=== PATIENT | female | born 1945 | race Caucasian/White ===

== ENCOUNTER → 2016-11-09 | Outpatient (REF) | payer MEDICARE, BC ==
[~2016-11-09] MED LIST: /ADVA50050 INH; /TIOT18INH; /TIOT18INH INH; /WARF25TA; AMBI5TAB; ASPI1TAB PO; ASPI81TA63; CALC600T10; DEXI60CA PO; FISH100035 PO; HYDR12.55 PO; KEFL500C; MAGN250T11 PO; PERC5TAB8; POTASSIUM; PRIN10TA PO; PROAAER IN; THERGRAN; VITA100037 PO; VITA250L PO; VITA250T; VITAMIN D; VITAMIN E; clindamycin
[2016-11-09 13:19] LABS: SQUAMOUS EPITHELIAL CELL URINE MOD AMOUNT /hpf (SMALL AMT)
[2016-11-09 13:20] LABS: BACTERIA, URINE NONE SEEN; HYALINE CAST, URINE NONE SEEN /lpf (0-1); MICROSCOPIC EXAM PERFORMED; TRANSITIONAL EPI CELLS, URINE MOD AMOUNT /hpf
== END ==
LOC: M LAB REF 12:51
PROVIDERS: ATTEND Internal Medicine
DX: R31.9 Hematuria, unspecified (principal)

== ENCOUNTER → 2016-11-28 | Outpatient (REF) | payer MEDICARE, BC | LOC: M SFHCLERA 08:51 | PROVIDERS: ATTEND Dermatology | DX: L85.8 Other specified epidermal thickening (principal) | CPT/HCPCS: 11100; 11101; 17000; 17003; 88305; G0463 ==

== ENCOUNTER 2017-05-20 11:45 | Day surgery (SDC) | payer MEDICARE, BC ==
[2017-05-20] MEDS: NS 1,000 ML IV (12:07)
[2017-05-20] MEDS ORDERED: PROPOFOL 200 MG/20 ML VIAL As Ordered ×2 (12:26)
[2017-05-20] MEDS ORDERED: LIDOCAINE 2% INJ 100 MG/5 ML SDV (FOR ANES.) As Ordered (12:31)
[2017-05-20] MEDS ORDERED: PHENYLephrine HCL 500 MCG/5 ML (100MCG/ML) SYRINGE (J2370) As Ordered (12:55)
[2017-05-20] MEDS ORDERED: NS 1,000 ML IV (13:15)
== END 2017-05-20 13:38 | disposition home or self-care (01) ==
LOC: M OPP 11:45
DX: Z12.11 Encounter for screening for malignant neoplasm of colon (principal); K64.0 First degree hemorrhoids; D12.6 Benign neoplasm of colon, unspecified; K57.30 Diverticulosis of large intestine without perforation or abscess without bleeding; Z86.010 Personal history of colon polyps; I10 Essential (primary) hypertension; K21.9 Gastro-esophageal reflux disease without esophagitis; E78.5 Hyperlipidemia, unspecified; J44.9 Chronic obstructive pulmonary disease, unspecified; Z79.82 Long term (current) use of aspirin; Z79.899 Other long term (current) drug therapy; Z91.49 Other personal history of psychological trauma, not elsewhere classified; Z91.048 Other nonmedicinal substance allergy status; Z96.643 Presence of artificial hip joint, bilateral
CPT/HCPCS: 45385

== ENCOUNTER 2017-10-03 15:19 | Inpatient (IN) | payer MEDICARE, BC ==
[2017-10-03 16:17] LABS: BASO % 0.3 % (0.0-1.0); EOS % 0.1 % (0.0-3.0); HEMATOCRIT 39.4 % (36.0-47.0); HEMOGLOBIN 12.9 g/dl (12.0-15.5); IMMATURE GRANULOCYTE % 0.4 % (0-3.0); LYMPH # 1.8 10^3/uL (1.5-4.5); LYMPH % 11.1 % (24.0-44.0); MEAN CORPUSCULAR HEMOGLOBIN 31.9 pg (27.0-33.0); MEAN CORPUSCULAR HGB CONC 32.7 g/dl (32.0-36.5); MEAN CORPUSCULAR VOLUME 97.3 fl (80.0-96.0); MONO # 0.8 10^3/uL (0.0-0.8); MONO % 4.9 % (0.0-5.0); NEUTROPHILS # 13.3 10^3/uL (1.8-7.7); NEUTROPHILS % 83.2 % (36.0-66.0); PLATELET COUNT, AUTOMATED 224 10^3/uL (150-450); RED BLOOD COUNT 4.05 10^6/uL (4.00-5.40); RED CELL DISTRIBUTION WIDTH 13.9 % (11.5-14.5)
[2017-10-03 16:21] LABS: ABG BASE EXCESS 2.6 (-2.0-2.0); ABG HCO3 28.4 MEQ/L (22.0-26.0); ABG O2 SATURATION 93.1 % (95.0-99.0); ABG PARTIAL PRESSURE CO2 48.5 mmHg (35.0-45.0); ABG PARTIAL PRESSURE O2 67.2 mmHg (75.0-100.0); ABG STANDARD HCO3 26.6 MEQ/L (22.0-26.0); ABG TOTAL CO2 29.9 MEQ/L (23.0-31.0); ABG pH (ARTERIAL) 7.385 UNITS (7.350-7.450)
[2017-10-03] MEDS: IPRATROPIUM 0.5MG/ALBUTEROL 2.5MG INH SOL UD 3ML (DUONEB)(J7620) NEB ×3 (16:25→17:34)
[2017-10-03 16:52] LABS: ALBUMIN 3.4 GM/DL (3.2-5.2); ALBUMIN/GLOBULIN RATIO 0.94 (1.00-1.93); ALKALINE PHOSPHATASE 125 U/L (45-117); ALT/SGPT 28 U/L (12-78); ANION GAP 9 MEQ/L (8-16); AST/SGOT 24 U/L (7-37); BILIRUBIN,DIRECT 0.5 MG/DL (0.0-0.2); BILIRUBIN,TOTAL 1.2 MG/DL (0.2-1.0); BLOOD UREA NITROGEN 16 MG/DL (7-18); CALCIUM LEVEL 8.4 MG/DL (8.8-10.2); CARBON DIOXIDE LEVEL 29 MEQ/L (21-32); CHLORIDE LEVEL 101 MEQ/L (98-107); CPK CREATINE PHOSPHOKINASE 41 U/L (26-192); CREATININE FOR GFR 0.66 MG/DL (0.55-1.30); GLOMERULAR FILTRATION RATE > 60.0 (>39); GLUCOSE, FASTING 75 MG/DL (70-100); SODIUM LEVEL 139 MEQ/L (136-145); TROPONIN I < 0.02 NG/ML (< 0.10)
[2017-10-03 16:52] LABS: LACTIC ACID SEPSIS PROTOCOL 1.4 MMOL/L (0.4-2.0)
[2017-10-03 16:53] LABS: CK-MB VALUE MASS 1.7 NG/ML (<3.6); MB/CK RELATIVE INDEX 4.14 (< OR =4); NT-PRO BNP 232 PG/ML (<125)
[2017-10-03] MEDS: ACETAMINOPHEN TAB 650MG DOSE (2X325MG) PO (16:57)
[2017-10-03] MEDS: methylPREDNISolone INJ 125 MG/2 ML VIAL (J2930) IV (16:58)
[2017-10-03] MEDS ORDERED: ISOVUE-370 76% 100ML VIAL (Q9967) As Ordered (17:17)
[2017-10-03] MEDS: NS 500 ML IV (17:30)
[2017-10-03] MEDS: cefTRIAXone SOD 1 GM in D5W MINI-BAG PLUS 50 ML IV (19:40)
[2017-10-03] MEDS ORDERED: ACETAMINOPHEN TAB 650MG DOSE (2X325MG) PO (20:00)
[2017-10-03] MEDS ORDERED: ALBUTEROL SULFATE 2.5 MG/0.5 ML INH NEB SOLN INH (20:00)
[2017-10-03] MEDS ORDERED: ONDANSETRON 4MG/2ML VIAL (J2405) IV (20:00)
[2017-10-03] MEDS: AZITHROMYCIN INJ 500 MG, VIAL MATE ADAPTER 1 EACH in D5W 250 ML IV (20:12)
[2017-10-03] MEDS: FLUTICASONE PROP 0.05% NASAL SPRAY 16 GM (FLONASE) (21:00)
[2017-10-03] MEDS: ATORVASTATIN 20 MG TAB PO (21:57)
[2017-10-03] MEDS: NS 1,000 ML IV (21:58)
[2017-10-03] MEDS: MIRTAZAPINE 15 MG TAB PO (21:58)
[2017-10-03] MEDS: ENOXAPARIN 40 MG/0.4 ML SYRINGE (J1650) SC (21:58)
[2017-10-03] MEDS: ADVAIR HFA 230/21MCG INHALER INH (23:03)
[2017-10-03] MEDS: ALBUTEROL SULFATE 2.5 MG/0.5 ML INH NEB SOLN INH (23:03)
[2017-10-04] MEDS: methylPREDNISolone INJ 125 MG/2 ML VIAL (J2930) IV (01:26)
[2017-10-04 06:29] LABS: HEMATOCRIT 34.8 % (36.0-47.0); HEMOGLOBIN 11.4 g/dl (12.0-15.5); MEAN CORPUSCULAR HEMOGLOBIN 31.8 pg (27.0-33.0); MEAN CORPUSCULAR HGB CONC 32.8 g/dl (32.0-36.5); MEAN CORPUSCULAR VOLUME 96.9 fl (80.0-96.0); PLATELET COUNT, AUTOMATED 180 10^3/uL (150-450); RED BLOOD COUNT 3.59 10^6/uL (4.00-5.40); RED CELL DISTRIBUTION WIDTH 13.6 % (11.5-14.5); WHITE BLOOD COUNT 12.4 10^3/uL (4.0-10.0)
[2017-10-04 06:44] LABS: ANION GAP 5 MEQ/L (8-16); BLOOD UREA NITROGEN 14 MG/DL (7-18); CALCIUM LEVEL 8.4 MG/DL (8.8-10.2); CARBON DIOXIDE LEVEL 30 MEQ/L (21-32); CHLORIDE LEVEL 105 MEQ/L (98-107); CREATININE FOR GFR 0.57 MG/DL (0.55-1.30); GLOMERULAR FILTRATION RATE > 60.0 (>39); GLUCOSE, FASTING 175 MG/DL (70-100); SODIUM LEVEL 140 MEQ/L (136-145)
[2017-10-04] MEDS: ALBUTEROL SULFATE 2.5 MG/0.5 ML INH NEB SOLN INH ×4 (08:00→19:57)
[2017-10-04] MEDS: TIOTROPIUM INHALER/CAPSULE (SPIRIVA) INH (08:36)
[2017-10-04] MEDS: ADVAIR HFA 230/21MCG INHALER INH ×2 (08:37→19:57)
[2017-10-04] MEDS: MULTIVITAMINS/MINERALS THERAP 1 TAB PO (09:03)
[2017-10-04] MEDS: OMEGA-3 1050MG CAPSULE PO (09:03)
[2017-10-04] MEDS: PANTOPRAZOLE 40MG TAB (PROTONIX) PO (09:03)
[2017-10-04] MEDS: LACTOBACILLUS ACIDOPHILUS CAP (BACID) PO (09:03)
[2017-10-04] MEDS: ASPIRIN 81 MG ENTERIC TAB PO (09:03)
[2017-10-04 09:05] LABS: ALBUMIN 2.7 GM/DL (3.2-5.2); ALBUMIN/GLOBULIN RATIO 0.68 (1.00-1.93); ALKALINE PHOSPHATASE 106 U/L (45-117); ALT/SGPT 23 U/L (12-78); AST/SGOT 20 U/L (7-37); BILIRUBIN,DIRECT 0.1 MG/DL (0.0-0.2); BILIRUBIN,TOTAL 0.3 MG/DL (0.2-1.0); TOTAL PROTEIN 6.7 GM/DL (6.4-8.2)
[2017-10-04] MEDS: methylPREDNISolone INJ 40 MG/1 ML VIAL (J2920) IV ×2 (09:06→17:24)
[2017-10-04] MEDS: AZITHROMYCIN 250 MG TAB PO (20:08)
[2017-10-04] MEDS: MIRTAZAPINE 15 MG TAB PO (20:08)
[2017-10-04] MEDS: ATORVASTATIN 20 MG TAB PO (20:08)
[2017-10-04] MEDS: FLUTICASONE PROP 0.05% NASAL SPRAY 16 GM (FLONASE) (20:09)
[2017-10-04] MEDS: ENOXAPARIN 40 MG/0.4 ML SYRINGE (J1650) SC (20:09)
[2017-10-04] MEDS: cefTRIAXone SOD 2 GM in D5W MINI-BAG PLUS 50 ML IV (20:09)
[2017-10-05] MEDS: methylPREDNISolone INJ 40 MG/1 ML VIAL (J2920) IV (01:31)
[2017-10-05 06:12] LABS: HEMATOCRIT 33.1 % (36.0-47.0); HEMOGLOBIN 10.8 g/dl (12.0-15.5); MEAN CORPUSCULAR HGB CONC 32.6 g/dl (32.0-36.5); MEAN CORPUSCULAR VOLUME 98.2 fl (80.0-96.0); PLATELET COUNT, AUTOMATED 198 10^3/uL (150-450); RED BLOOD COUNT 3.37 10^6/uL (4.00-5.40); WHITE BLOOD COUNT 11.8 10^3/uL (4.0-10.0)
[2017-10-05 06:31] LABS: ALBUMIN 2.7 GM/DL (3.2-5.2); ALBUMIN/GLOBULIN RATIO 0.68 (1.00-1.93); ALKALINE PHOSPHATASE 113 U/L (45-117); ALT/SGPT 24 U/L (12-78); ANION GAP 3 MEQ/L (8-16); AST/SGOT 20 U/L (7-37); BILIRUBIN,DIRECT < 0.1 MG/DL (0.0-0.2); BILIRUBIN,TOTAL 0.1 MG/DL (0.2-1.0); BLOOD UREA NITROGEN 24 MG/DL (7-18); CALCIUM LEVEL 8.5 MG/DL (8.8-10.2); CARBON DIOXIDE LEVEL 32 MEQ/L (21-32); CHLORIDE LEVEL 109 MEQ/L (98-107); GLOMERULAR FILTRATION RATE > 60.0 (>39); GLUCOSE, FASTING 137 MG/DL (70-100); POTASSIUM SERUM 4.8 MEQ/L (3.5-5.1); SODIUM LEVEL 144 MEQ/L (136-145); TOTAL PROTEIN 6.7 GM/DL (6.4-8.2)
[2017-10-05] MEDS: ALBUTEROL SULFATE 2.5 MG/0.5 ML INH NEB SOLN INH ×4 (08:00→20:00)
[2017-10-05] MEDS: ADVAIR HFA 230/21MCG INHALER INH ×2 (09:49→20:17)
[2017-10-05] MEDS: TIOTROPIUM INHALER/CAPSULE (SPIRIVA) INH (09:49)
[2017-10-05] MEDS: OMEGA-3 1050MG CAPSULE PO (11:17)
[2017-10-05] MEDS: PANTOPRAZOLE 40MG TAB (PROTONIX) PO (11:18)
[2017-10-05] MEDS: ASPIRIN 81 MG ENTERIC TAB PO (11:18)
[2017-10-05] MEDS: MULTIVITAMINS/MINERALS THERAP 1 TAB PO (11:18)
[2017-10-05] MEDS: LACTOBACILLUS ACIDOPHILUS CAP (BACID) PO (11:18)
[2017-10-05] MEDS ORDERED: methylPREDNISolone INJ 40 MG/1 ML VIAL (J2920) IV (13:00)
[2017-10-05] MEDS: methylPREDNISolone INJ 125 MG/2 ML VIAL (J2930) IV (14:07)
[2017-10-05] MEDS: BENZONATATE 100 MG CAP PO (14:09)
[2017-10-05] MEDS: MIRTAZAPINE 15 MG TAB PO (20:21)
[2017-10-05] MEDS: AZITHROMYCIN 250 MG TAB PO (20:21)
[2017-10-05] MEDS: cefTRIAXone SOD 2 GM in D5W MINI-BAG PLUS 50 ML IV (20:21)
[2017-10-05] MEDS: ATORVASTATIN 20 MG TAB PO (20:21)
[2017-10-05] MEDS: FLUTICASONE PROP 0.05% NASAL SPRAY 16 GM (FLONASE) (20:22)
[2017-10-05] MEDS: ENOXAPARIN 40 MG/0.4 ML SYRINGE (J1650) SC (20:22)
[2017-10-06] MEDS: methylPREDNISolone INJ 125 MG/2 ML VIAL (J2930) IV (00:50)
[2017-10-06 06:42] LABS: HEMATOCRIT 34.4 % (36.0-47.0); HEMOGLOBIN 11.4 g/dl (12.0-15.5); MEAN CORPUSCULAR HEMOGLOBIN 32.6 pg (27.0-33.0); MEAN CORPUSCULAR HGB CONC 33.1 g/dl (32.0-36.5); MEAN CORPUSCULAR VOLUME 98.3 fl (80.0-96.0); PLATELET COUNT, AUTOMATED 242 10^3/uL (150-450); RED CELL DISTRIBUTION WIDTH 13.9 % (11.5-14.5)
[2017-10-06 07:07] LABS: ALKALINE PHOSPHATASE 109 U/L (45-117); ALT/SGPT 30 U/L (12-78); ANION GAP 5 MEQ/L (8-16); AST/SGOT 23 U/L (7-37); BLOOD UREA NITROGEN 24 MG/DL (7-18); CALCIUM LEVEL 8.4 MG/DL (8.8-10.2); CARBON DIOXIDE LEVEL 32 MEQ/L (21-32); CHLORIDE LEVEL 108 MEQ/L (98-107); CREATININE FOR GFR 0.73 MG/DL (0.55-1.30); GLOMERULAR FILTRATION RATE > 60.0 (>39); GLUCOSE, FASTING 119 MG/DL (70-100); POTASSIUM SERUM 3.8 MEQ/L (3.5-5.1); SODIUM LEVEL 145 MEQ/L (136-145)
[2017-10-06 07:08] LABS: ALBUMIN 2.8 GM/DL (3.2-5.2); ALBUMIN/GLOBULIN RATIO 0.72 (1.00-1.93); BILIRUBIN,DIRECT < 0.1 MG/DL (0.0-0.2); BILIRUBIN,TOTAL 0.2 MG/DL (0.2-1.0); C REACTIVE PROTEIN QUANTITATIV 5.47 MG/DL (0.00-0.30); TOTAL PROTEIN 6.7 GM/DL (6.4-8.2)
[2017-10-06] MEDS: ALBUTEROL SULFATE 2.5 MG/0.5 ML INH NEB SOLN INH ×4 (08:00→20:00)
[2017-10-06] MEDS: TIOTROPIUM INHALER/CAPSULE (SPIRIVA) INH (08:28)
[2017-10-06] MEDS: ADVAIR HFA 230/21MCG INHALER INH ×2 (08:28→20:37)
[2017-10-06] MEDS: BENZONATATE 100 MG CAP PO ×2 (10:58→19:04)
[2017-10-06] MEDS: LACTOBACILLUS ACIDOPHILUS CAP (BACID) PO (10:58)
[2017-10-06] MEDS: guaiFENesin DM LIQ 10ML UD PO ×2 (10:58→20:38)
[2017-10-06] MEDS: guaiFENesin ER 600 MG TAB PO ×2 (10:59→20:18)
[2017-10-06] MEDS: OMEGA-3 1050MG CAPSULE PO (10:59)
[2017-10-06] MEDS: PANTOPRAZOLE 40MG TAB (PROTONIX) PO (10:59)
[2017-10-06] MEDS: MULTIVITAMINS/MINERALS THERAP 1 TAB PO (10:59)
[2017-10-06] MEDS: ASPIRIN 81 MG ENTERIC TAB PO (10:59)
[2017-10-06] MEDS: methylPREDNISolone INJ 40 MG/1 ML VIAL (J2920) IV (14:20)
[2017-10-06] MEDS: ENOXAPARIN 40 MG/0.4 ML SYRINGE (J1650) SC (20:17)
[2017-10-06] MEDS: cefTRIAXone SOD 2 GM in D5W MINI-BAG PLUS 50 ML IV (20:18)
[2017-10-06] MEDS: MIRTAZAPINE 15 MG TAB PO (20:18)
[2017-10-06] MEDS: ATORVASTATIN 20 MG TAB PO (20:18)
[2017-10-06] MEDS: AZITHROMYCIN 250 MG TAB PO (20:18)
[2017-10-06] MEDS: FLUTICASONE PROP 0.05% NASAL SPRAY 16 GM (FLONASE) (20:19)
[2017-10-07] MEDS: methylPREDNISolone INJ 40 MG/1 ML VIAL (J2920) IV (01:15)
[2017-10-07 06:21] LABS: HEMATOCRIT 33.9 % (36.0-47.0); HEMOGLOBIN 11.1 g/dl (12.0-15.5); MEAN CORPUSCULAR HEMOGLOBIN 32.2 pg (27.0-33.0); MEAN CORPUSCULAR HGB CONC 32.7 g/dl (32.0-36.5); MEAN CORPUSCULAR VOLUME 98.3 fl (80.0-96.0); PLATELET COUNT, AUTOMATED 244 10^3/uL (150-450); RED BLOOD COUNT 3.45 10^6/uL (4.00-5.40); RED CELL DISTRIBUTION WIDTH 13.8 % (11.5-14.5); WHITE BLOOD COUNT 9.5 10^3/uL (4.0-10.0)
[2017-10-07 06:44] LABS: ALBUMIN 2.9 GM/DL (3.2-5.2); ALBUMIN/GLOBULIN RATIO 0.94 (1.00-1.93); ALKALINE PHOSPHATASE 111 U/L (45-117); ALT/SGPT 31 U/L (12-78); ANION GAP 5 MEQ/L (8-16); AST/SGOT 17 U/L (7-37); BILIRUBIN,DIRECT < 0.1 MG/DL (0.0-0.2); BILIRUBIN,TOTAL 0.2 MG/DL (0.2-1.0); BLOOD UREA NITROGEN 26 MG/DL (7-18); CALCIUM LEVEL 8.1 MG/DL (8.8-10.2); CARBON DIOXIDE LEVEL 36 MEQ/L (21-32); CHLORIDE LEVEL 106 MEQ/L (98-107); CREATININE FOR GFR 0.85 MG/DL (0.55-1.30); GLOMERULAR FILTRATION RATE > 60.0 (>39); GLUCOSE, FASTING 115 MG/DL (70-100); POTASSIUM SERUM 4.4 MEQ/L (3.5-5.1); SODIUM LEVEL 147 MEQ/L (136-145)
[2017-10-07] MEDS: TIOTROPIUM INHALER/CAPSULE (SPIRIVA) INH (07:17)
[2017-10-07] MEDS: ADVAIR HFA 230/21MCG INHALER INH (07:18)
[2017-10-07] MEDS: ALBUTEROL SULFATE 2.5 MG/0.5 ML INH NEB SOLN INH (07:18)
[2017-10-07] MEDS: LACTOBACILLUS ACIDOPHILUS CAP (BACID) PO (09:16)
[2017-10-07] MEDS: OMEGA-3 1050MG CAPSULE PO (09:16)
[2017-10-07] MEDS: MULTIVITAMINS/MINERALS THERAP 1 TAB PO (09:16)
[2017-10-07] MEDS: PANTOPRAZOLE 40MG TAB (PROTONIX) PO (09:16)
[2017-10-07] MEDS: guaiFENesin ER 600 MG TAB PO (09:16)
[2017-10-07] MEDS: ASPIRIN 81 MG ENTERIC TAB PO (09:16)
== END 2017-10-07 11:43 | disposition home or self-care (01) | DRG 871 ==
LOC: M ED 15:19 → M ED INP 19:49 → M MSPAV 20:50
DX: A41.9 Sepsis, unspecified organism (principal); J18.9 Pneumonia, unspecified organism; J44.0 Chronic obstructive pulmonary disease with (acute) lower respiratory infection; J96.11 Chronic respiratory failure with hypoxia; J44.1 Chronic obstructive pulmonary disease with (acute) exacerbation; L40.9 Psoriasis, unspecified; I10 Essential (primary) hypertension; I25.10 Atherosclerotic heart disease of native coronary artery without angina pectoris; F32.9 Major depressive disorder, single episode, unspecified; Z99.81 Dependence on supplemental oxygen; Z87.891 Personal history of nicotine dependence; Z96.643 Presence of artificial hip joint, bilateral; Z79.82 Long term (current) use of aspirin; Z79.899 Other long term (current) drug therapy; Z91.048 Other nonmedicinal substance allergy status

== ENCOUNTER → 2017-11-26 | Outpatient (CLI) | payer MEDICARE, BC ==
[~2017-11-26] MED LIST changes: -/ADVA50050 INH; -/TIOT18INH; -/TIOT18INH INH; -/WARF25TA; -AMBI5TAB; -ASPI1TAB PO; -ASPI81TA63; -CALC600T10; -DEXI60CA PO; -FISH100035 PO; -HYDR12.55 PO; +ISOVUE-370 76% 100ML VIAL (Q9967) As Ordered; -KEFL500C; -MAGN250T11 PO; -PERC5TAB8; -POTASSIUM; -PRIN10TA PO; -PROAAER IN; -THERGRAN; -VITA100037 PO; -VITA250L PO; -VITA250T; -VITAMIN D; -VITAMIN E; -clindamycin
== END ==
LOC: M RAD 15:44
DX: R91.1 Solitary pulmonary nodule (principal); N28.1 Cyst of kidney, acquired; R91.8 Other nonspecific abnormal finding of lung field; J96.01 Acute respiratory failure with hypoxia
CPT/HCPCS: Q9967

== ENCOUNTER → 2017-11-26 | Outpatient (REF) | payer MEDICARE, BC ==
[2017-11-26 16:38] LABS: CREATININE FOR GFR 0.76 MG/DL (0.55-1.30); GLOMERULAR FILTRATION RATE > 60.0 (>39)
[2017-11-26 16:38] LABS: BLOOD UREA NITROGEN 21 MG/DL (7-18)
== END ==
LOC: M LAB REF 15:52
DX: J96.01 Acute respiratory failure with hypoxia (principal)

== ENCOUNTER → 2018-09-03 | Outpatient (REF) | payer MEDICARE, BC ==
[~2018-09-03] MED LIST changes: +ADVA1AER2 INH; +ADVA230A INH; +AMBI5TAB; +ASPI1TAB PO; +ASPI81TA63; +ATOR1TAB19 PO; +ATOR1TAB21 PO; +B-1210009 PO; +CALC600T10; +CEFD1CAP8 PO; +COUM1TAB18; +DEXI60CA PO; +FISH100035 PO; +FLON1SPR; +HYDR12.55 PO; -ISOVUE-370 76% 100ML VIAL (Q9967) As Ordered; +KEFL500C; +MAGN250T11 PO; +MIRT30TA3 PO; +MUCI600T37 PO; +MULT1TAB10 PO; +PERC5TAB8; +POTASSIUM; +PRED10TA2 PO; +PRIN10TA PO; +PROAAER IN; +PROBCAP4 PO; +SPIR1CAP; +SPIR1CAP INH; +THERGRAN; +TRIA0.1C60 TOP; +VENTAER INH; +VITA100037 PO; +VITA250L PO; +VITA250T; +VITAMIN D; +VITAMIN E; +[UNRECOGNIZED DRUG - OTHER] INH; +clindamycin
[2018-09-03 15:49] LABS: BLOOD UREA NITROGEN 19 MG/DL (7-18); GLOMERULAR FILTRATION RATE > 60.0 (>39)
== END ==
LOC: M LAB REF 13:33
PROVIDERS: ATTEND Internal Medicine Pulmonary Disease
DX: R06.00 Dyspnea, unspecified (principal)

== ENCOUNTER 2018-09-25 12:13 | Outpatient (RCR) | payer MEDICARE, BC ==
[2018-09-25] MEDS ORDERED: PAROXETINE PO (12:55)
[2018-09-25] MEDS ORDERED: GINS100C PO (12:55)
[2018-09-25] MEDS ORDERED: XANA0.25 PO (12:55)
[2018-09-25] MEDS ORDERED: K-TA10TA2 PO (12:55)
[2018-09-25] MEDS ORDERED: MAGN400T14 PO (12:55)
== END 2018-10-10 ==
LOC: M PR 12:13
PROVIDERS: ATTEND Internal Medicine Pulmonary Disease
DX: J43.2 Centrilobular emphysema (principal)

== ENCOUNTER → 2019-04-07 | Outpatient (REF) | payer MEDICARE, BC ==
[~2019-04-07] MED LIST changes: +GINS100C PO; +K-TA10TA2 PO; +MAGN400T14 PO; +PAROXETINE PO; +XANA0.25 PO
== END ==
LOC: M LAB REF 18:48
PROVIDERS: ATTEND Dermatology
DX: C44.321 Squamous cell carcinoma of skin of nose (principal); L57.0 Actinic keratosis

== ENCOUNTER → 2019-07-01 | Outpatient (REF) | payer MEDICARE, BC ==
[2019-07-01 17:26] LABS: INFLUENZA A AMPLIFICATION NEGATIVE (NEGATIVE); INFLUENZA B AMPLIFICATION NEGATIVE (NEGATIVE)
== END ==
LOC: M LAB REF 16:33
PROVIDERS: ATTEND Physician Assistant
DX: J11.1 Influenza due to unidentified influenza virus with other respiratory manifestations (principal)

== ENCOUNTER → 2019-07-13 | Outpatient (REF) | payer MEDICARE, BC | LOC: M LAB REF 09:37 | PROVIDERS: ATTEND Dermatology | DX: D04.39 Carcinoma in situ of skin of other parts of face (principal); L57.0 Actinic keratosis ==

== ENCOUNTER → 2020-06-08 | Outpatient (REF) | payer MEDICARE, BC | LOC: M LAB REF 12:03 | PROVIDERS: ATTEND Internal Medicine | DX: R74.8 Abnormal levels of other serum enzymes (principal) ==

== ENCOUNTER → 2020-08-13 | Outpatient (CLI) | payer MEDICARE, BC ==
[~2020-08-13] MED LIST changes: +ASPI81TA26 PO; +BUDE0.5S6 INH; +D31000TA2 PO; +DEXI60CA2 PO; +ERYT1CAP2 PO; +FISH1000 PO; +IPRA2IN INH; +LISI10TA15 PO; +MIRT1TAB17 PO; +MUCI1TAB16 PO; +PARO20TA4 PO; +PERF20NE2 INH; +PRED5PAK2 PO; +VITMTA PO; +calcium mag zinc PO
== END ==
LOC: M LABSMTC 11:27
PROVIDERS: ATTEND Anesthesiology
DX: Z01.812 Encounter for preprocedural laboratory examination (principal)

== ENCOUNTER 2020-08-18 07:11 | Day surgery (SDC) | payer MEDICARE, BC ==
[~2020-08-18] VITALS: Ht 154.9 cm; Wt 63.4 kg
[~2020-08-18 07:11] MED LIST changes: +BALANCED SALT IRRIGATION SOLUTION 500ML BAG (FOR OR EYE MACHINE) As Ordered ONE; +BSS IRR 500ML/OMIDRIA 4ML IRR BAG (OR ONLY) As Ordered ONE; +CEFUROXIME 1MG/0.1ML INTRACAMERAL INJ As Ordered ONE; +DUOVISC (0.50ML VISCOAT/0.55ML PROVISC) OPHTH KIT As Ordered ONE; +OFLOXACIN 0.3 % (OCUFLOX) OPTH SOL 5ML OS ONE; +PHENYLEPHRINE 2.5% OPHTH SOL 2ML OS ONE; +POVIDONE-IODINE 5% OPHTH PREP SOL 30ML As Ordered ONE; +PROPARACAINE 0.5% OPHTH SOL 15ML OS ONE; +TROPICAMIDE 1% OPHTH SOLN 2ML OS ONE
[2020-08-18] MEDS ORDERED: MIDAZOLAM INJ 2MG/2ML VIAL (J2250 PER 1MG) As Ordered ONE (08:54)
[2020-08-18] MEDS ORDERED: fentaNYL 100 MCG/2 ML INJECTION (J3010) As Ordered ONE (08:54)
[2020-08-18 09:50] VITALS: BP 135/61
--- NOTE | 2020-08-19 10:50 | RO ---
OPERATIVE NOTE DATE OF OPERATION: 08/18/2020 PREOPERATIVE DIAGNOSIS: 1. Visually significant dense nuclear sclerotic cataract, left eye. POSTOPERATIVE DIAGNOSIS: 1. Visually significant dense nuclear sclerotic cataract, left eye. PROCEDURE: 1. Extracapsular cataract extraction with insertion of intraocular lens, AU00T0, 22.5 D, left eye. SURGEON: Booker Dominguez DO ANESTHESIA: Local (Omidria with MAC) COMPLICATIONS: None POSTOPERATIVE CONDITION: Stable INDICATIONS FOR SURGERY: 1. Blurred vision affecting patient's activities of daily living. DESCRIPTION OF PROCEDURE: The patient was seen in the preoperative area and properly identified. The correct operative eye was identified and marked. The patient received topical anesthetic, antibiotics, and topical dilating drops. The patient was then transferred to the operating room. The correct side was re-identified and a time-out was performed. The eye was prepped and draped in a sterile fashion. The eyelids were isolated with Tegaderm tape and the lids were held open with an adjustable speculum. A 1.0mm paracentesis incision was made. Omidria was then injected into the anterior chamber. Viscoelastic was then injected into the anterior chamber through the paracentesis. Using a 2.4mm sharp-tipped keratome, the anterior chamber was entered via a temporal clear cornea incision. A continuous curvilinear capsulorrhexis was created with Utrata forceps. Hydrodissection was performed with BSS on a blunt cannula until the nucleus was able to rotate freely. The crystalline lens was phacoemulsified and aspirated. Irrigation/aspiration was used to remove the cortical material Cohesive viscoelastic was placed into the capsular bag to deepen it. The implant was placed into the capsular bag and allowed to unfold. Placement was confirmed by visualizing the anterior capsulorrhexis. Irrigation/aspiration was used to remove the viscoelastic. The clear corneal incision was hydrated with BSS on a blunt cannula. The lens was well positioned. Intracameral antibiotic was injected into the anterior chamber. The incisions were then tested for leaks and found to be negative. The eye was then palpated for appropriate pressure and adjusted accordingly with BSS. The eyelid speculum was then carefully removed. A shield was placed over the eye. The patient tolerated the procedure well and was discharge to the recovery unit in a stable condition.
== END 2020-08-18 09:50 | disposition home or self-care (01) ==
LOC: M SDC 07:11
PROVIDERS: ATTEND Ophthalmology
DX: H25.12 Age-related nuclear cataract, left eye (principal); L23.0 Allergic contact dermatitis due to metals; J44.9 Chronic obstructive pulmonary disease, unspecified; I10 Essential (primary) hypertension; E78.5 Hyperlipidemia, unspecified; K57.92 Diverticulitis of intestine, part unspecified, without perforation or abscess without bleeding; Z87.891 Personal history of nicotine dependence; Z79.899 Other long term (current) drug therapy
CPT/HCPCS: 66984; J1097; J2250; J3010; V2632

== ENCOUNTER → 2020-08-20 | Outpatient (CLI) | payer MEDICARE, BC ==
[~2020-08-20] MED LIST changes: -BALANCED SALT IRRIGATION SOLUTION 500ML BAG (FOR OR EYE MACHINE) As Ordered ONE; -BSS IRR 500ML/OMIDRIA 4ML IRR BAG (OR ONLY) As Ordered ONE; -CEFUROXIME 1MG/0.1ML INTRACAMERAL INJ As Ordered ONE; -DUOVISC (0.50ML VISCOAT/0.55ML PROVISC) OPHTH KIT As Ordered ONE; -OFLOXACIN 0.3 % (OCUFLOX) OPTH SOL 5ML OS ONE; -PHENYLEPHRINE 2.5% OPHTH SOL 2ML OS ONE; -POVIDONE-IODINE 5% OPHTH PREP SOL 30ML As Ordered ONE; -PROPARACAINE 0.5% OPHTH SOL 15ML OS ONE; -TROPICAMIDE 1% OPHTH SOLN 2ML OS ONE
== END ==
LOC: M LABSMTC 08:38
PROVIDERS: ATTEND Anesthesiology
DX: Z01.818 Encounter for other preprocedural examination (principal); Z11.52 Encounter for screening for COVID-19

== ENCOUNTER 2020-08-25 07:07 | Day surgery (SDC) | payer MEDICARE, BC ==
[~2020-08-25] VITALS: Ht 154.9 cm; Wt 63.1 kg
[~2020-08-25 07:07] MED LIST changes: +CEFUROXIME 1MG/0.1ML INTRACAMERAL INJ As Ordered ONE; +DUOVISC (0.50ML VISCOAT/0.55ML PROVISC) OPHTH KIT As Ordered ONE; +OFLOXACIN 0.3 % (OCUFLOX) OPTH SOL 5ML OD ONE; +PHENYLEPHRINE 2.5% OPHTH SOL 2ML OD ONE; +POVIDONE-IODINE 5% OPHTH PREP SOL 30ML As Ordered ONE; +PROPARACAINE 0.5% OPHTH SOL 15ML OD ONE; +TROPICAMIDE 1% OPHTH SOLN 2ML OD ONE
[2020-08-25] MEDS ORDERED: BSS IRR 500ML/OMIDRIA 4ML IRR BAG (OR ONLY) As Ordered ONE (07:19)
[2020-08-25] MEDS ORDERED: MIDAZOLAM INJ 2MG/2ML VIAL (J2250 PER 1MG) As Ordered ONE (07:39)
[2020-08-25] MEDS ORDERED: fentaNYL 100 MCG/2 ML INJECTION (J3010) As Ordered ONE (07:39)
[2020-08-25 09:25] VITALS: BP 134/65
--- NOTE | 2020-08-26 08:12 | RO ---
OPERATIVE NOTE DATE OF OPERATION: 08/25/2020 PREOPERATIVE DIAGNOSIS: 1. Visually significant nuclear sclerotic cataract, right eye. POSTOPERATIVE DIAGNOSIS: 1. Visually significant nuclear sclerotic cataract, right eye. PROCEDURE: 1. Cataract extraction with use of phacoemulsification, and placement of intraocular lens, AU00T0, 22.5 D, right eye. SURGEON: Booker Dominguez DO ANESTHESIA: Local (Omidria with MAC) COMPLICATIONS: None POSTOPERATIVE CONDITION: Stable INDICATIONS FOR SURGERY: 1. Blurred vision affecting patient's activities of daily living. DESCRIPTION OF PROCEDURE: The patient was seen in the preoperative area and properly identified. The correct operative eye was identified and marked. The patient received topical anesthetic, antibiotics, and topical dilating drops. The patient was then transferred to the operating room. The correct side was re-identified and a time-out was performed. The eye was prepped and draped in a sterile fashion. The eyelids were isolated with Tegaderm tape and the lids were held open with an adjustable speculum. A 1.0mm paracentesis incision was made. Omidria was then injected into the anterior chamber. Viscoelastic was then injected into the anterior chamber through the paracentesis. Using a 2.4mm sharp-tipped keratome, the anterior chamber was entered via a temporal clear cornea incision. A continuous curvilinear capsulorrhexis was created with Utrata forceps. Hydrodissection was performed with BSS on a blunt cannula until the nucleus was able to rotate freely. The crystalline lens was phacoemulsified and aspirated. Irrigation/aspiration was used to remove the cortical material Cohesive viscoelastic was placed into the capsular bag to deepen it. The implant was placed into the capsular bag and allowed to unfold. Placement was confirmed by visualizing the anterior capsulorrhexis. Irrigation/aspiration was used to remove the viscoelastic. The clear corneal incision was hydrated with BSS on a blunt cannula. The lens was well positioned. Intracameral antibiotic was injected into the anterior chamber. The incisions were then tested for leaks and found to be negative. The eye was then palpated for appropriate pressure and adjusted accordingly with BSS. The eyelid speculum was then carefully removed. A shield was placed over the eye. The patient tolerated the procedure well and was discharge to the recovery unit in a stable condition.
== END 2020-08-25 09:45 | disposition home or self-care (01) ==
LOC: M SDC 07:07
PROVIDERS: ATTEND Ophthalmology
DX: H25.11 Age-related nuclear cataract, right eye (principal)
CPT/HCPCS: 66984; J1097; J2250; J3010; V2632

== ENCOUNTER 2020-09-18 14:01 | Emergency (ER) | payer MEDICARE, BC ==
[~2020-09-18] VITALS: Ht 154.9 cm; Wt 62.7 kg
[~2020-09-18 14:01] MED LIST changes: -CEFUROXIME 1MG/0.1ML INTRACAMERAL INJ As Ordered ONE; -DUOVISC (0.50ML VISCOAT/0.55ML PROVISC) OPHTH KIT As Ordered ONE; -OFLOXACIN 0.3 % (OCUFLOX) OPTH SOL 5ML OD ONE; -PHENYLEPHRINE 2.5% OPHTH SOL 2ML OD ONE; -POVIDONE-IODINE 5% OPHTH PREP SOL 30ML As Ordered ONE; -PROPARACAINE 0.5% OPHTH SOL 15ML OD ONE; -TROPICAMIDE 1% OPHTH SOLN 2ML OD ONE
[2020-09-18] MEDS ORDERED: NEOSPORIN OINT 0.9 GM PKT TOP ONE (14:55)
[2020-09-18 15:11] LABS: HEMATOCRIT 28.8 % (36.0-47.0); HEMOGLOBIN 8.5 g/dl (12.0-15.5); MEAN CORPUSCULAR HEMOGLOBIN 30.4 pg (27.0-33.0); MEAN CORPUSCULAR HGB CONC 29.5 g/dl (32.0-36.5); MEAN CORPUSCULAR VOLUME 102.9 fl (80.0-96.0); PLATELET COUNT, AUTOMATED 312 10^3/uL (150-450); WHITE BLOOD COUNT 10.4 10^3/uL (4.0-10.0)
[2020-09-18 15:22] LABS: INR 0.94; PROTHROMBIN TIME 12.8 SECONDS (12.5-14.3)
[2020-09-18] MEDS ORDERED: NEOM28.3 TP (15:56)
[2020-09-18 16:00] VITALS: BP 99/52
== END 2020-09-18 16:16 | disposition home or self-care (01) ==
LOC: M ED 14:01
DX: R04.0 Epistaxis (principal); I10 Essential (primary) hypertension; E78.5 Hyperlipidemia, unspecified; J44.9 Chronic obstructive pulmonary disease, unspecified; Z87.891 Personal history of nicotine dependence

== ENCOUNTER → 2020-12-05 | Outpatient (CLI) | payer MEDICARE, BC ==
[~2020-12-05] MED LIST changes: +NEOM28.3 TP
--- NOTE | 2020-12-05 14:32 | REP ---
INDICATION: PERSONAL H/O NICOTINE DEPEND. COMPARISON: CT angio 11/26/2017, 10/03/2017, 03/25/2013 TECHNIQUE: Low-dose lung CT screening protocol. FINDINGS: There is some linear scarring in the posterior basal segment left lower lobe similar previous study in the area where infiltrate was seen in 2013. There are some subpleural nodules near the anterior axillary line on the left similar to the previous study. Some lingular atelectatic change in the previous study resolved there is some thickening of the left major fissure. Previous 7 mm nodule right upper lobe is completely resolved without residual scarring. No change in the nodule in the medial basal segment right lower lobe since the 2018 study, this measures 8 mm. Some basilar fibrotic changes in the lateral basal segment of the right lower lobe and lateral segment of the right middle lobe unchanged. 3 mm nodule in the left lower lobe on image 49 now present. Previous areas of subsegmental atelectatic change in right lower lobe posterior basal segment in the posterior axillary line resolved. Cylindrical bronchiectatic changes are again noted. IMPRESSION: Lung rads category 2 benign, benign findings. Multiple stable nodules with only new nodule 3 mm size right lower lobe. Some stable areas of scarring other areas a density on previous study resolved. Patients with this category of findings have less than 1% chance of malignancy at the time of the examination. For patients at high risk of developing lung malignancy, annual low-dose screening CT recommended. <Electronically signed by Ramin Cervantes > 12/05/20 1428
== END ==
LOC: M RAD 13:32
PROVIDERS: ATTEND Internal Medicine Pulmonary Disease
DX: Z87.891 Personal history of nicotine dependence (principal)

== ENCOUNTER 2020-12-19 11:52 | Inpatient (IN) | payer MEDICARE, BC ==
[2020-12-19] VITALS (34 sets, daily range): BP systolic 65–120; BP diastolic 35–66
[~2020-12-19] VITALS: Ht 154.9 cm; Wt 76.3 kg
[2020-12-19] MEDS ORDERED: NS 1,000 ML IV ONE ×3 (12:35→20:55)
[2020-12-19 12:39] LABS: HEMATOCRIT 22.5 % (36.0-47.0); MEAN CORPUSCULAR HEMOGLOBIN 29.3 pg (27.0-33.0); MEAN CORPUSCULAR HGB CONC 29.8 g/dl (32.0-36.5); MEAN CORPUSCULAR VOLUME 98.3 fl (80.0-96.0); PLATELET COUNT, AUTOMATED 219 10^3/uL (150-450); RED BLOOD COUNT 2.29 10^6/uL (4.00-5.40)
[2020-12-19 13:09] LABS: HEMOGLOBIN 6.7 g/dl (12.0-15.5)
[2020-12-19] MEDS ORDERED: PRED5TA PO (13:36)
[2020-12-19] MEDS ORDERED: FERR324T2 PO (13:36)
[2020-12-19] MEDS ORDERED: COMBAER6 INH (13:36)
[2020-12-19] MEDS ORDERED: SPIR12.9 INH (13:36)
[2020-12-19] MEDS ORDERED: ALB2.5NEB INH (13:36)
[2020-12-19] MEDS ORDERED: AZIT-10 PO (13:36)
[2020-12-19] MEDS ORDERED: CAL-TAB2 PO (13:36)
[2020-12-19] MEDS ORDERED: ADV500INH INH (13:36)
[2020-12-19] MEDS ORDERED: HOME MED LIST COMPLETE! XX SCH (13:40)
[2020-12-19] MEDS ORDERED: ACETAMINOPHEN TAB 650MG DOSE (2X325MG) PO PRN (14:10)
[2020-12-19 14:38] LABS: RSV AMPLIFICATION NEGATIVE (NEGATIVE)
--- NOTE | 2020-12-19 15:17 | HPEPDOC ---
[facility] Medical History & Physical Date of Admission Dec 19, 2020 Date of Service: Dec 19, 2020 Primary Care Physician: Judith Gee Attending Physician: EVELYN VILLALPANDO DO History and Physical CHIEF COMPLAINT: Rectal bleeding HISTORY OF PRESENT ILLNESS: Patient is a 75-year-old female who presented to the hospital today with chief complaint of rectal bleeding. Patient states that she started having bright red blood per rectum plus blood clots yesterday. Patient says that she has been having a bowel movement every 2-3 hours in which there is bright red blood and blood clots. Patient began feeling slightly lightheaded today and presented the emergency department. In the emergency department, patient did have an episode of bright red blood per rectum. Patient called EMS and was found to have a very low blood pressure with systolic blood pressure in the 50s. Patient received 400 cc of normal saline via EMS and 1 L of normal saline in the emergency department. Patient started getting blood in the emergency department. Patient is ordered for 2 units of packed red blood cells PAST MEDICAL HISTORY: 1. Hypertension. 2. COPD on 2 L of oxygen. 3. History of diverticular bleed. PAST SURGICAL HISTORY: 1. Left and right total hip. 2. Back surgery. 3. Cataracts. SOCIAL HISTORY: Patient denies smoking, alcohol, and illicit drug use. 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 REVIEW OF SYSTEMS: General: Patient denies fevers HEENT: Patient denies headaches Cardiovascular: Patient denies chest pain Respiratory: Patient reports some mild increase in shortness of breath from her baseline GI: Patient reports bright red blood and clots as above. Patient denies abdominal pain : Patient denies increased frequency or pain with urination Extremities: Patient denies swelling or pain in extremities Neurological: Patient denies numbness or tingling in legs Skin: Patient denies any new rashes or lesions. Hematologic: Patient denies any easy bruising. Lymphatic: Patient denies any lumps lumps or bumps in neck, axilla, or groin HOME MEDICATIONS: Please see below. PHYSICAL EXAMINATION: VITAL SIGNS: Temperature 98.2, pulse 92, respiratory rate 22, blood pressure 95/48, pulse oximetry 98% on 2 L of oxygen via nasal cannula General: Alert and oriented female patient who was sitting up in bed when I walked in the room. Patient did not appear to be in any acute distress. HEENT: Normocephalic, atraumatic, moist mucous membranes. Neck: No lymphadenopathy or thyromegaly Cardiac: Regular rate and rhythm, no murmurs, normal S1, normal S2 Pulm: Diminished breath sounds bilaterally. No wheezing, rhonchi, or rales Abd: Nondistended, nontender to palpation, normal bowel sounds Ext: No edema bilateral lower extremities Neuro: Patient was able to move all 4 extremities on command. Patient reported equal sensation light touch. Skin: Skin of the head, neck, upper and lower extremities, back was examined not show any rashes. Patient did have hemosiderin deposits in the lower extremities bilaterally. LABORATORY DATA: See below. IMAGING: CT of the abdomen and pelvis without followed by with contrast in the arterial and venous phase performed on 12/19/2020 was reported to show questionable gastrointestinal bleed present in the proximal right ascending colon in the right mid flank area seen on post IV contrast images 41 through 46 of series 501. Diffuse colonic diverticulosis is present throughout the large bowel moderately severe in the sigmoid colon, without acute diverticulitis. Cholelithiasis is present, with no evidence of acute cholecystitis. The biliary ducts appear normal. Multiple hypodense cortical masses are present in both kidneys, with the largest mass in the mid upper pole left kidney measures 7.3 cm in maximal diameter. These masses have benign features with thin spring and homogeneous low-attenuation density of less than 20 Hounsfield units and are likely a Bosniak type I cyst. No further follow-up is recommended. Levoscoliosis of the lumbar spine is present, apex at L2/L3. Chronic degenerative discovertebral disease is additionally seen throughout the lumbar spine. MICROBIOLOGY: Please see below. ASSESSMENT: 75-year-old female who presented to the hospital with bright red blood per rectum who was found to be in hypovolemic shock. . PLAN: 1. Hypovolemic shock. Patient's blood pressure was in the 50s and EMS and was 73/30 on arrival to the emergency department. Patient has received 1400 cc of normal saline and will get 2 units of packed red blood cells. We will continue with normal saline after the patient receives 2 units of packed red blood cells. We will continue to monitor the patient's blood pressure. Patient will be admitted to the intensive care unit. Patient will be given 2 L of colonoscopy prep. I did speak with Dr. Putnam of gastroenterology who will see the patient. If the patient continues to bleed, patient can be taken tonight for colonoscopy to try to stop the bleeding. If the bleeding slows down, we will give the other 2 L to make sure this is a full colonoscopy prep and she will have her procedure tomorrow morning. 2. Lower GI bleed. Patient is having bright red blood per rectum. Patient will be held n.p.o. Patient has not eaten or had anything to drink since yesterday afternoon as she does not feel hungry. Patient will be seen by gastroenterology. Prep will be given as above. 3. Symptomatic anemia. Patient is mildly short of breath compared to her baseline. Patient's hemoglobin was 6.7. We will recheck 1 after transfusion is complete to see if she adequately responds or she is still bleeding. 4. COPD. Patient will be on her home 2 L. 5. History of hypertension. Patient is currently hypotensive so all antihypertensives will be held at this time. 6. DVT prophylaxis teds and sequentials 7. CODE STATUS: Full code Disposition: Patient will be admitted in the intensive care unit due to her hypotension due to her hypovolemic shock. Patient will be taken for colonoscopy either tonight or tomorrow based on how she responds to treatment. Patient will be hospitalized for greater than 2 midnights. Gastroenterology called stating that after their consultation, the patient's blood pressure had gone down back in the systolic of 80s. Patient continued to have bloody bowel movements. I spoke with interventional radiology and Dr. Butterfield who requested a three-phase CT scan be performed. I spoke with Dr. Butterfield after the CT scan was performed and the patient was found to have an arterial bleed in the right hemicolon. General surgery was contacted to make them aware of the patient as if they were unable to stop the bleed via mesenteri c angiography and embolization, patient will require a right hemicolectomy. Patient was brought up into the intensive care unit with the patient had a large bloody bowel movement. Patient filled up about half the bedpan with blood. At that time it was decided to transfuse an additional 2 units of blood. Repeat labs were done showing the patient's hemoglobin had increased to 7.8 after 2 units of blood. Patient has received 2400 cc of normal saline in bolus and is on a 1.5 maintenance fluid rate of 150 cc/h. Patient was brought down to interventional radiology. I personally spoke with anesthesia, Dr. Alejandra, who will be at the patient's bedside during the procedure. I gave him the report about the additional 2 units of blood in the patient's maintenance rate. Patient will have the blood given through the rapid transfusion. Patient's care was transferred over to anesthesia and Dr. Butterfield was in the room as the patient was brought over onto the table in the angio suite. Vital Signs Vital Signs Date Time Temp Pulse Resp B/P (MAP) Pulse Ox O2 Delivery O2 Flow Rate FiO2 12/19/20 14:50 98.2 91 21 95/48 99 Nasal Cannula 2.0 Laboratory Data Labs 24H Laboratory Tests 2 12/19/20 12:15: POC Glucose (Misc Panel) 110H, POC Sodium (Misc Panel) 139, POC Potassium (Misc Panel) 3.9, POC Chloride (Misc Panel) 94L, POC Total CO2 (Misc Panel) 35.0H, POC Blood Urea Nitrogen (Misc Panel 30H, POC Ionized Calcium (Misc Panel) 4.2L, POC Creatinine (Misc Panel) 1.1, POC Hematocrit (Misc Panel) 21.0L 12/19/20 12:24: Nucleated Red Blood Cells % (auto) 0.2H 12/19/20 13:45: Coronavirus (COVID-19)(PCR) NEGATIVE, Influenza Type A (RT-PCR) NEGATIVE, Inf luenza Type B (RT-PCR) NEGATIVE, Respiratory Syncytial Virus (PCR) NEGATIVE CBC/BMP Laboratory Tests 12/19/20 12:24 Home Medications Scheduled Aspirin (Aspirin EC) 81 Mg Tablet.dr 81 MG PO DAILY Atorvastatin Calcium (Atorvastatin Calcium) 20 Mg Tab, 20 MG PO QHS Azithromycin (Azithromycin) 250 Mg Tablet, 250 MG PO 3XW MON/WED/FRI Calcium/Magnesium/Zinc (Xnskiwj-Zolhbhlld-Ldmh Tablet) 1 Each Tablet, 1 TAB PO DAILY Cholecalciferol (Vitamin D3) (Vitamin D3) 1,000 Unit Tablet, 1,000 UNITS PO DAILY Cyanocobalamin (Vitamin B-12) (Vitamin B-12) 1,000 Mcg Tab, 1,000 MCG PO DAILY Dexlansoprazole (Dexilant) 60 Mg Cap.bp, 60 MG PO DAILY Ferrous Sulfate (Ferrous Sulfate) 324 Mg Tablet.dr, 324 MG PO DAILY Lisinopril/Hydrochlorothiazide (Lisinopril-Hctz 10-12.5 mg Tab) 1 Each Tablet, 0.5 TAB PO QHS Mirtazapine (Mirtazapine) 45 Mg Tab.rapdis, 45 MG PO QHS Multivitamins (Thera M Plus Tablet) 1 Each Tablet, 1 TAB PO DAILY [place]-3 Fatty Acids/Fish Oil (Fish Oil 1,000 mg Capsule) 1 Each Capsule, 1,000 MG PO DAILY Paroxetine HCl (Paroxetine) 20 Mg Tablet, 20 MG PO QHS Prednisone (Prednisone) 5 Mg Tablet, 5 MG PO DAILY Salmeterol/Fluticasone (Advair 500-50 Diskus) 1 Each Blst.w.dev, 1 PUFF INH BID Tiotropium [place] (Spiriva Respimat) 4 Gm Mist.inhal, 2 PUFFS INH DAILY Scheduled PRN Albuterol Sulfate (Albuterol Sulfate) 2.5 Mg/0.5 Ml Vial.neb, 2.5 MG INH QID PRN for SOB/WHEEZING Alprazolam (Xanax) 0.25 Mg Tablet, 0.25 MG PO DAILY PRN for ANXIETY Guaifenesin (Mucinex) 1,200 Mg Tab.er.12h, 1,200 MG PO BID PRN for CONGESTION Ipratropium/Albuterol Sulfate (Combivent Respimat 20-100 Mcg) 4 Gm Mist.inhal, 2 PUFF INH Q6H PRN for SOB/WHEEZING Allergies Coded Allergies: nickel (Verified Allergy, Intermediate, rash, 08/18/20) A-FIB/CHADSVASC A-FIB History Current/History of A-Fib/PAF?: No EVELYN VILLALPANDO DO Dec 19, 2020 15:17
[2020-12-19] MEDS ORDERED: GOLYTELY SOLN 4000 ML BTL PO ONE (16:00)
[2020-12-19] MEDS ORDERED: ISOVUE-370 76% 100ML VIAL As Ordered ONE (16:37)
[2020-12-19] MEDS: NS 1,000 ML IV SCH ×2 (17:08→22:45)
--- NOTE | 2020-12-19 17:12 | CR.PDOC ---
General Date of Consultation: Dec 19, 2020 Referring Provider: PRASHANT VASQUEZ DO Attending Physician: YVETTE CESPEDES MD Consultation Primary physician/ hospitalist: - Judith Gee MD / Prashant Vasquez DO, Reason for consult: -Rectal bleeding HPI: 75-year-old female patient with HTN, COPD on 2 L of oxygen, prior history of diverticular bleeding, presented to ER with acute onset bloody bowel movements. GI was consulted for the same. Patient reports her symptoms started yesterday morning with as bowel urgency and multiple bowel movements (up to 10), with bloody stools. Patient felt weak and today she came to ER. Patient reports having 3 bowel movements today with bright red blood, last bowel movement in ER with blood clots. Patient is noted to have low systolic blood pressure and being transfused PRBC. Patient denies any abdominal pain associated with bowel movements, and denies taking any blood thinning medication or recent NSAID use. Patient does report having daily bowel movements with rarely constipation. Pertinent negative GI symptoms: Patient denies fever, sick contacts, recent travel, nausea, vomiting, abdominal pain, loss of appetite, early satiety or unintentional weight loss. No history of hematemesis. Review of Systems: GI: as stated above CVS: No chest pain, No palpitations, No leg swelling. RS: No Shortness of breath, No Wheezing, no cough CONVEYOR FEEDER: No dizziness, No motor weakness, No sensory problems Hematology: No bruising, No gum bleeding, Musculoskeletal: No joint pain, ambulating well. Skin: No rash : No hematuria, No burning sensation of the urine ENT: No ear discharge/ pain, No dysphagia. Eyes: No photophobia. Jaundice Home medications: reviewed. Antithrombotic agents: -Aspirin 81 mg Medical h/o: As above. Surgical h/o: None on abdomen. Social h/o: Alcohol: -Denies (stopped many years ago), smoking: Quit more than 15 years ago, IVDA/ drugs: Denies. Family h/o of GI cancers - None Prior Endoscopies: Patient had colonoscopy [place] [address] Dominguez, for history of colon polyps, noted small polyp and diverticulosis. Prior GI evaluations: -Follows with Dr. Dominguez Exam: Vitals: reviewed General: Alert and oriented x 3, moderate distress from shortness of breath and fatigue. HEENT: Severe conjunctival pallor, no icterus. Normal oropharynx, NO cervical lymph nodes. Chest: symmetric with bilateral air entry with diffuse wheezing., CVS: S1, S2 heard, normal, no murmurs . Abdomen: non-distended, no surgical scars, soft, non-tender, no palpable masses, normal bowel sounds heard. Rectal exam: Patient refused / Deferred. Extremities: no pedal edema, pulses palpable. CONVEYOR FEEDER: no focal motor or sensory deficits. Moves all extremities Skin: no rash. Labs: reviewed. Impression: -75-year-old female patient with COPD on continuous supplemental oxygen, prior known diverticulosis, presents with painless profuse rectal bleeding, hypotensive, with labs showing acute drop in hemoglobin and hematocrit from baseline, -- DDx-- Likely diverticular bleeding vs AVM bleeding vs less likely Colon polyps. Recommendations: - Patient educated about the test results, possible differential diagnoses and All questions answered. - Monitor hemoglobin and hematocrit and transfuse as needed to adequately resuscitate. - Avoid NSAIDs -Patient to be started on bowel preparation when optimized from medical point. If patient blood pressure or clinical status is not allowing bowel prep, or if the patient is persistently hypotensive, would benefit from IR embolization. - Patient and her spouse are educated about the different treatment options, indications, risks, benefits, limitations (e.g., missing a lesion), and all other alternatives (including no intervention). - At this point, patient would like to have IR evaluation. - GI will follow. Plan of care discussed with patient and primary team. Patient verbalized understanding and agreed with the plan. Vital Signs/I&O Vital Signs Date Time Temp Pulse Resp B/P (MAP) Pulse Ox O2 Delivery O2 Flow Rate FiO2 12/19/20 16:41 90/56 (67) 12/19/20 16:30 100 24 98 Nasal Cannula 2.0 12/19/20 16:25 98.5 Laboratory Data Labs 24H Laboratory Tests 2 12/19/20 12:15: POC Glucose (Misc Panel) 110H, POC Sodium (Misc Panel) 139, POC Potassium (Misc Panel) 3.9, POC Chloride (Misc Panel) 94L, POC Total CO2 (Misc Panel) 35.0H, POC Blood Urea Nitrogen (Misc Panel 30H, POC Ionized Calcium (Misc Panel) 4.2L, POC Creatinine (Misc Panel) 1.1, POC Hematocrit (Misc Panel) 21.0L 12/19/20 12:24: Nucleated Red Blood Cells % (auto) 0.2H 12/19/20 13:45: Coronavirus (COVID-19)(PCR) NEGATIVE, Influenza Type A (RT-PCR) NEGATIVE, Influenza Type B (RT-PCR) NEGATIVE, Respiratory Syncytial Virus (PCR) NEGATIVE CBC/BMP Laboratory Tests 12/19/20 12:24 Allergies Coded Allergies: nickel (Verified Allergy, Intermediate, rash, 08/18/20) Home Medications Scheduled Aspirin (Aspirin EC) 81 Mg Tablet.dr, 81 MG PO DAILY, (Reported) Atorvastatin Calcium (Atorvastatin Calcium) 20 Mg Tab, 20 MG PO QHS, (Reported) Azithromycin (Azithromycin) 250 Mg Tablet, 250 MG PO 3XW, (Reported) SAT/SAT/SAT Calcium/Magnesium/Zinc (Rpxgnyv-Kezsyfhts-Bjwr Tablet) 1 Each Tablet, 1 TAB PO DAILY, (Reported) Cholecalciferol (Vitamin D3) (Vitamin D3) 1,000 Unit Tablet, 1,000 UNITS PO DAILY, (Reported) Cyanocobalamin (Vitamin B-12) (Vitamin B-12) 1,000 Mcg Tab, 1,000 MCG PO DAILY, (Reported) Dexlansoprazole (Dexilant) 60 Mg Cap..bp, 60 MG PO DAILY, (Reported) Ferrous Sulfate (Ferrous Sulfate) 324 Mg Tablet.dr, 324 MG PO DAILY, (Reported) Lisinopril/Hydrochlorothiazide (Lisinopril-Hctz 10-12.5 mg Tab) 1 Each Tablet, 0.5 TAB PO QHS, (Reported) Mirtazapine (Mirtazapine) 45 Mg Tab.rapdis, 45 MG PO QHS, (Reported) Multivitamins (Thera M Plus Tablet) 1 Each Tablet, 1 TAB PO DAILY, (Reported) [place]-3 Fatty Acids/Fish Oil (Fish Oil 1,000 mg Capsule) 1 Each Capsule, 1,000 MG PO DAILY, (Reported) Paroxetine HCl (Paroxetine) 20 Mg Tablet, 20 MG PO QHS, (Reported) Prednisone (Prednisone) 5 Mg Tablet, 5 MG PO DAILY, (Reported) Salmeterol/Fluticasone (Advair 500-50 Diskus) 1 Each Blst.w.dev, 1 PUFF INH BID, (Reported) Tiotropium [place] (Spiriva Respimat) 4 Gm Mist.inhal, 2 PUFFS INH DAILY, (Reported) Scheduled PRN Albuterol Sulfate (Albuterol Sulfate) 2.5 Mg/0.5 Ml Vial.neb, 2.5 MG INH QID PRN for SOB/WHEEZING, (Reported) Alprazolam (Xanax) 0.25 Mg Tablet, 0.25 MG PO DAILY PRN for ANXIETY, (Reported) Guaifenesin (Mucinex) 1,200 Mg Tab.er.12h, 1,200 MG PO BID PRN for CONGESTION, (Reported) Ipratropium/Albuterol Sulfate (Combivent Respimat 20-100 Mcg) 4 Gm Mist.inhal, 2 PUFF INH Q6H PRN for SOB/WHEEZING, (Reported) YVETTE CESPEDES MD Dec 19, 2020 17:12
[2020-12-19] MEDS ORDERED: fentaNYL 100 MCG/2 ML INJECTION (J3010) As Ordered ONE (17:59)
[2020-12-19 18:06] LABS: HEMATOCRIT 24.5 % (36.0-47.0); HEMOGLOBIN 7.8 g/dl (12.0-15.5); MEAN CORPUSCULAR HEMOGLOBIN 30.1 pg (27.0-33.0); MEAN CORPUSCULAR HGB CONC 31.8 g/dl (32.0-36.5); MEAN CORPUSCULAR VOLUME 94.6 fl (80.0-96.0); PLATELET COUNT, AUTOMATED 161 10^3/uL (150-450); RED BLOOD COUNT 2.59 10^6/uL (4.00-5.40)
[2020-12-19] MEDS ORDERED: LIDOCAINE 1% MDV 20ML VIAL As Ordered ONE (18:06)
[2020-12-19] MEDS ORDERED: ISOVUE-300 61% 50ML VIAL As Ordered ONE ×2 (18:06→18:43)
--- NOTE | 2020-12-19 18:14 | REPVR ---
PROCEDURE INFORMATION: Exam: CT Abdomen And Pelvis Without And With Contrast Exam date and time: 12/19/2020 5:13 PM Age: 75 years old Clinical indication: Other: Rectal bleed; Additional info: Non contrast, arterial phase and delayed phase, rectal bleed TECHNIQUE: Imaging protocol: Computed tomography of the abdomen and pelvis without and with contrast. 3D rendering (Not supervised by radiologist): MIP and/or 3D reconstructed images were created by the technologist. Radiation optimization: All CT scans at this facility use at least one of these dose optimization techniques: automated exposure control; mA and/or kV adjustment per patient size (includes targeted exams where dose is matched to clinical indication); or iterative reconstruction. Contrast material: ISOVUE 370; Contrast volume: 100 ml; Contrast route: INTRAVENOUS (IV); COMPARISON: LOW DOSE LUNG SCREENING CT 12/05/2020 1:43 PM FINDINGS: Lungs: No acute abnormality is seen in the lung bases. Heart: No significant abnormality. Liver: Normal. No mass. Gallbladder and bile ducts: Cholelithiasis is present, with no evidence of acute cholecystitis. The biliary ducts appear normal. Pancreas: Normal. No ductal dilation. Spleen: Normal. No splenomegaly. Adrenal glands: Normal. No mass. Kidneys and ureters: Multiple hypodense cortical masses are present in both kidneys, with the largest mass in the mid-upper pole left kidney measuring 7.3 cm in maximum diameter. These masses have benign features with thin spring and homogeneous low attenuation density of less than 20 Hounsfield units and are likely Bosniak type I cysts. Stomach and bowel: There is a questionable gastrointestinal bleed present in the proximal right ascending colon in the right mid-the flank area, seen on the post IV contrast images 41 through 46 of series 501. Diffuse colonic diverticulosis is present throughout the large bowel, moderately severe in the sigmoid colon, without acute diverticulitis. Appendix: No evidence of appendicitis. Intraperitoneal space: Unremarkable. No free air. No significant fluid collection. Vasculature: Unremarkable. No abdominal aortic aneurysm. Lymph nodes: Unremarkable. No enlarged lymph nodes. Urinary bladder: Unremarkable as visualized. Reproductive: Unremarkable as visualized. Bones/joints: Levoscoliosis of the lumbar spine is present, apex at L2/L3. Chronic degenerative discovertebral disease is additionally seen throughout the lumbar spine. Soft tissues: Unremarkable. IMPRESSION: 1. Diffuse colonic diverticulosis is present throughout the large bowel, moderately severe in the sigmoid colon, without acute diverticulitis. 2. Cholelithiasis is present, with no evidence of acute cholecystitis. The biliary ducts appear normal. 3. Multiple hypodense cortical masses are present in both kidneys, with the largest mass in the mid-upper pole left kidney measuring 7.3 cm in maximum diameter. These masses have benign features with thin spring and homogeneous low attenuation density of less than 20 Hounsfield units and are likely Bosniak type I cysts. No further follow-up is recommended. Reference: Janet ALDRIDGE, Management of the Incidental Renal Mass on CT: A White Paper of the ACR Incidental Findings Committee, J Am Lynsey Radiol 2018. 4. Levoscoliosis of the lumbar spine is present, apex at L2/L3. Chronic degenerative discovertebral disease is additionally seen throughout the lumbar spine. COMMENTS: Consistent with the [employer]'s Incidental Findings Committee white paper (J Am Lynsey Radiol 2018): Any incidental renal lesion less than 1 cm or classified as too small to characterize, or any incidental cystic renal lesion characterized as simple-appearing, is likely benign. No follow-up imaging is recommended for these lesions per consensus recommendations based on imaging criteria. Electronically signed by: Ricardo Becerra On 12/19/2020 18:13:46 PM
[2020-12-19 18:18] LABS: INR 1.04; PROTHROMBIN TIME 14.1 SECONDS (12.7-14.5)
[2020-12-19 18:19] LABS: PARTIAL THROMBOPLASTIN TIME 30.7 SECONDS (25.9-37.0)
[2020-12-19] MEDS ORDERED: MIDAZOLAM INJ 2MG/2ML VIAL (J2250 PER 1MG) As Ordered ONE (18:22)
[2020-12-19] MEDS ORDERED: HYDROCORTISONE 100 MG/2 ML VIAL (J1720 PER 1) As Ordered ONE (18:22)
[2020-12-19 18:30] LABS: BLOOD UREA NITROGEN 28 MG/DL (7-18); CALCIUM LEVEL 6.9 MG/DL (8.8-10.2); CARBON DIOXIDE LEVEL 33 MEQ/L (21-32); CHLORIDE LEVEL 107 MEQ/L (98-107); CREATININE FOR GFR 0.72 MG/DL (0.55-1.30); GLOMERULAR FILTRATION RATE > 60.0 (>39); GLUCOSE, FASTING 98 MG/DL (70-100); POTASSIUM SERUM 4.2 MEQ/L (3.5-5.1); SODIUM LEVEL 143 MEQ/L (136-145)
[2020-12-19] MEDS ORDERED: PHENYLephrine 500MCG 5ML (100MCG/ML) SYRINGE As Ordered ONE (18:33)
--- NOTE | 2020-12-19 19:22 | ECGEPIP ---
[facility] - ED Test Date: 2020-12-19 Pat Name: WALLY MCMILLAN Department: Room: - Gender: Female Alarm Adjuster: YADIRA : 1945 Requested By: FABIOLA Lopez Order Number: [id number] Reading MD: Dawna Mesa Measurements Intervals [place] Rate: 109 P: 81 [place]: 140 QRS: 18 QRSD: 82 T: 63 QT: 332 QTc: 447 Interpretive Statements Sinus tachycardia irbbb Increased R/S ratio in V1, consider early transition or posterior infarct decreased rate 10/03/17 Electronically Signed on 12-19-2020 19:22:10 EDT by Dawna Mesa
[2020-12-19] MEDS ORDERED: IPRATROPIUM 0.5MG/ALBUTEROL 2.5MG INH SOL UD 3ML (DUONEB) NEB SCH (20:00)
[2020-12-19 21:32] LABS: HEMATOCRIT 32.9 % (36.0-47.0)
[2020-12-19 21:34] LABS: HEMOGLOBIN 10.4 g/dl (12.0-15.5)
[2020-12-19] MEDS ORDERED: OCTREOTIDE ACETATE 100MCG/ML VIAL (J2354 PER 25MCG) IV SCH (22:00)
[2020-12-19] MEDS ORDERED: fentaNYL 100 MCG/2 ML INJECTION (J3010) IV PRN (22:20)
[2020-12-19] MEDS ORDERED: LR 1,000 ML IV SCH (22:20)
[2020-12-19] MEDS ORDERED: ONDANSETRON 4MG/2ML VIAL IV PRN (22:20)
--- NOTE | 2020-12-19 23:27 | ROOPDOC ---
[facility] Report Of Operation Report of Operation DATE OF PROCEDURE: 12/19/20 PROCEDURE PERFORMED: Right IJ central venous cannulation. PREPROCEDURE DIAGNOSES: Hemorrhagic shock. POSTPROCEDURE DIAGNOSES: . Consent obtained from: Patient (signed) SURGEON: Dr Gabe MD ANESTHESIA: Local with 1% lidocaine. ESTIMATED BLOOD LOSS: Approximately 2 mL. COMPLICATIONS: none. DESCRIPTION OF PROCEDURE: A time out was performed. My hands were washed immediately prior to the procedure. I wore a surgical cap, mask with protective eyewear, sterile gown and sterile gloves throughout the procedure. The RIGHT neck region was prepped using chlorhexidine scrub and draped in sterile fashion using a full drape and sterile probe cover and sterile gel employed. The carotid pulse was identified. Anesthesia was achieved using 1% lidocaine. Using the ultrasound guidance, the introducer needle was inserted into the right IJ vein. Venous blood was withdrawn. The syringe was removed and a guidewire was advanced into the introducer needle. A small incision was made at the skin surface with a scalpel and the introducer needle was exchanged for a dilator over the guidewire. After appropriate dilation was obtained, the dilator was exchanged over the wire for a triple lumen 7.5Fr central venous catheter. The wire was removed and the catheter was sutured in place at 16 cm. A sterile sorbaview shield was placed over the catheter at the insertion site. The patient tolerated the procedure w ithout any hemodynamic compromise. At time of procedure completion, all ports aspirated and flushed properly. Estimated blood loss is minimal. Post procedure CXR confirmed successful placement of CVC and there's no evidence of pneumothorax. ADRIENNE GREENE MD Dec 19, 2020 23:27
[2020-12-19] MEDS ORDERED: NOREPINEPHRINE BITARTRATE 16 MG in D5W 484 ML IV SCH (23:45)
[2020-12-20] VITALS (73 sets, daily range): BP systolic 76–125; BP diastolic 37–83
--- NOTE | 2020-12-20 00:15 | REPVR ---
PROCEDURE INFORMATION: Exam: XR Chest Exam date and time: 12/19/2020 11:08 PM Age: 75 years old Clinical indication: Other vascular access device placement or adjustment; Central line, non-tunnelled; Additional info: S/P tlc placement TECHNIQUE: Imaging protocol: XR of the chest. Views: 1 view. COMPARISON: CR Chest, 2 view PA, Lat 10/03/2017 4:43 PM FINDINGS: Tubes, catheters and devices: Right IJ central venous catheter with tip at the SVC. Lungs: No acute infiltrate. Pleural spaces: Unremarkable. No pleural effusion. No pneumothorax. Heart/Mediastinum: Unremarkable. No cardiomegaly. Bones/joints: Status post lumbar fusion which is not fully imaged. IMPRESSION: 1. No acute infiltrates. 2. Right IJ central venous catheter as described. Electronically signed by: Robina Lester On 12/20/2020 00:15:00 AM
[2020-12-20] MEDS ORDERED: LORazepam 2 MG/ML VIAL IV PRN (00:25)
[2020-12-20] MEDS ORDERED: SCOPOLAMINE 1MG TRANSDERMAL PATCH TOP PRN (00:25)
[2020-12-20] MEDS ORDERED: MORPHINE 2 MG/ML 1ML VIAL (J2270) IV PRN (00:25)
[2020-12-20] MEDS ORDERED: NOREPINEPHRINE BITARTRATE 8 MG in D5W 492 ML IV SCH (00:30)
[2020-12-20] MEDS ORDERED: ACETAMINOPHEN TAB 650MG DOSE (2X325MG) PO PRN (00:30)
[2020-12-20 01:03] LABS: HEMATOCRIT 29.9 % (36.0-47.0); HEMOGLOBIN 9.6 g/dl (12.0-15.5)
[2020-12-20] MEDS: NS 1,000 ML IV SCH ×2 (03:03→09:54)
[2020-12-20] MEDS: IPRATROPIUM 0.5MG/ALBUTEROL 2.5MG INH SOL UD 3ML (DUONEB) NEB SCH ×2 (03:38→07:23)
[2020-12-20] MEDS: OCTREOTIDE ACETATE 100MCG/ML VIAL (J2354 PER 25MCG) IV SCH ×3 (05:08→21:15)
[2020-12-20 05:34] LABS: HEMATOCRIT 28.4 % (36.0-47.0); MEAN CORPUSCULAR HEMOGLOBIN 29.4 pg (27.0-33.0); MEAN CORPUSCULAR HGB CONC 31.7 g/dl (32.0-36.5); MEAN CORPUSCULAR VOLUME 92.8 fl (80.0-96.0); PLATELET COUNT, AUTOMATED 144 10^3/uL (150-450); RED BLOOD COUNT 3.06 10^6/uL (4.00-5.40); WHITE BLOOD COUNT 17.4 10^3/uL (4.0-10.0)
[2020-12-20 05:51] LABS: BLOOD UREA NITROGEN 33 MG/DL (7-18); CALCIUM LEVEL 6.3 MG/DL (8.8-10.2); CARBON DIOXIDE LEVEL 25 MEQ/L (21-32); CHLORIDE LEVEL 115 MEQ/L (98-107); CREATININE FOR GFR 0.65 MG/DL (0.55-1.30); GLOMERULAR FILTRATION RATE > 60.0 (>39); GLUCOSE, FASTING 70 MG/DL (70-100); MAGNESIUM LEVEL 1.8 MG/DL (1.8-2.4); POTASSIUM SERUM 4.9 MEQ/L (3.5-5.1); SODIUM LEVEL 148 MEQ/L (136-145)
[2020-12-20] MEDS: NOREPINEPHRINE BITARTRATE 16 MG in D5W 492 ML IV SCH (06:10)
--- NOTE | 2020-12-20 06:28 | IPNPDOC ---
Date Seen The patient was seen on 12/20/20. Progress Note I discussed with Dr. Butterfield after the angiography. At the time of the procedure, patient was found not to be bleeding, suspected due to vasoconstriction. On arrival to the ICU, patient was normotensive. However, shortly after became further hypotensive. Ordered 1 L NS bolus, which slightly improved blood pressure. I requested Dr. Bernal, compliance quality performance analyst, to place a central line. His assistance was greatly appreciated. Ordered the Levophed which has been required to maintain the patient's blood pressure. She had one large bowel movement with clots overnight. I discussed her case once again with Dr. Reeves and Dr. Putnam. Plan is for colonoscopy this afternoon. Patient is encouraged to drink as much GoLYTELY as possible for prep. If colonoscopy is unrevealing and the patient continues to have significant amount of bleeding she may be a candidate for right hemicolectomy per Dr. Reeves. Patient was started on IV octreotide infusion. Goal hemoglobin 9.0. VS, I&O, 24H, Fishbone Vital Signs/I&O Vital Signs Date Time Temp Pulse Resp B/P (MAP) Pulse Ox O2 Delivery O2 Flow Rate FiO2 12/20/20 06:10 85/51 12/20/20 04:00 3.0 12/20/20 01:00 107 99 12/20/20 00:00 98.2 18 Nasal Cannula I&O- Last 24 Hours up to 6 AM 12/20/20 06:00 Intake Total 4810 ml Output Total 300 ml Balance 4510 ml Laboratory Data 24H LABS Laboratory Tests 2 12/19/20 12:15: POC Glucose (Misc Panel) 110H, POC Sodium (Misc Panel) 139, POC Potassium (Misc Panel) 3.9, POC Chloride (Misc Panel) 94L, POC Total CO2 (Misc Panel) 35.0H, POC Blood Urea Nitrogen (Misc Panel 30H, POC Ionized Calcium (Misc Panel) 4.2L, POC Creatinine (Misc Panel) 1.1, POC Hematocrit (Misc Panel) 21.0L 12/19/20 12:24: Nucleated Red Blood Cells % (auto) 0.2H 12/19/20 13:45: Coronavirus (COVID-19)(PCR) NEGATIVE, Influenza Type A (RT-PCR) NEGATIVE, Influenza Type B (RT-PCR) NEGATIVE, Respiratory Syncytial Virus (PCR) NEGATIVE 12/19/20 17:57: Nucleated Red Blood Cells % (auto) 0.0, Prothrombin Time 14.1H, Prothromb Time International Ratio 1.04, Activated Partial Thromboplast Time 30.7, Anion Gap 3L, Glomerular Filtration Rate > 60.0, Calcium Level 6.9L 12/20/20 05:12: Nucleated Red Blood Cells % (auto) 0.0, Anion Gap 8, Glomerular Filtration Rate > 60.0, Calcium Level 6.3L, Magnesium Level 1.8 CBC/BMP Laboratory Tests 12/19/20 12:24 12/19/20 17:57 12/19/20 21:10 12/20/20 00:56 12/20/20 05:12 PRAMOD DORANTES MD Dec 20, 2020 06:28
[2020-12-20] MEDS: ADVAIR HFA 230/21MCG INHALER INH SCH ×2 (08:00→19:53)
[2020-12-20 09:27] LABS: HEMATOCRIT 27.5 % (36.0-47.0); HEMOGLOBIN 8.5 g/dl (12.0-15.5)
--- NOTE | 2020-12-20 09:31 | IRPON ---
IR Postoperative Note Date Of Procedure: Dec 19, 2020 Time Of Procedure: 16:00 IR Postoperative Note IR Mesenteric angiogram. IR Selective superior mesenteric artery catheterization and arteriography. IR Supra selective microcatheterization of second and third order branches of SMA and arteriography. Clinical Information:Lower GI bleeding. Active extravasation in the right hemicolon seen on CTA. Physician: Dr. Butterfield. Procedure: The patient was advised of the benefits, risks, and alternatives of the procedure and informed consent was obtained. A time out was performed with verification of the patient's name, MRN, site of procedure, and type of procedure to be performed. The patient was positioned in the supine position on the angiographic table. The site was prepped and draped in the usual sterile fashion. Sedation was performed by the anesthesia team. The physician spent 90 minutes of continuous [id number] time with the patient. A business support coordinator radiograph reveals hardware in the lumbar spine. Lidocaine was used for local anesthesia. The right common femoral artery was accessed, under fluoroscopy guidance with a microintroducer set. A short 0.018" Peck wire was inserted, under fluoroscopy guidance and the needle was exchanged for a 4 Fr microintroducer sheath. The guidewire and dilator were removed and a 0.035" Bentson wire was advanced, under fluoroscopy guidance and placed into the abdominal aorta. A 5 Fr sheath was placed over the wire. A 5 F SOS 2 catheter was advanced over the wire, under fluoroscopy guidance and used to selectively catheterize the superior mesenteric artery. A superior mesenteric angiogram was performed and this demonstrates diffuse vasoconstriction of branches of the superior mesenteric artery. No active extravasation. A 2.8 Progret microcatheter was then inserted, through the diagnostic catheter, under fluoroscopy guidance. The microcatheter in conjunction with a microwire, was used to subselective catheterize the proximal middle colic artery. An arteriogram was performed and this demonstrates antegrade supply to the hepatic flexure and right hemicolon. No active extravasation. All distal branches of this artery are severely vasoconstricted. The microcatheter in conjunction with the microwire, was then used under fluoroscopy guidance to superselectively catheterize the ileocolic - right colic trunk. A selective arteriogram was performed. This demonstrates vasoconstriction . No active extravasation. The microcatheter was retracted back to the mid superior mesenteric artery, just distal to the takeoff of the middle colic artery. An arteriogram was performed from this location and this demonstrates, antegrade flow in the distal terminal superior mesenteric artery, ilial branches and ileocolic - right colic trunk. Vessels are vasoconstricted. Supply to the right colon is observed. No active extravasation is seen. The microcatheter in conjunction with the microwire, was used to selectively catheterize the distal superior mesenteric artery. An arteriogram was performed. This demonstrates antegrade flow from the distal SMA but no active extravasation. The microcatheter in conjunction with a microwire, was used to superselectively catheterize the distal ileocolic - right colic trunk. An arteriogram was performed. This demonstrates bifurcation of this vessel into ileocolic and right colic artery. There is antegrade flow. There is vasoconstriction. No active extravasation. The microcatheter in conjunction with the microwire, was used under fluoroscopic guidance, to subselective catheterize the right colic artery. An arteriogram was performed. This demonstrates vasoconstriction but preserved antegrade flow in the right colon. No active extravasation. The microcatheter in conjunction with the microwire, was used under fluoroscopy guidance, to supra selectively catheterize the distal middle colic artery. An arteriogram was performed, with magnification views over the hepatic flexure. Th is demonstrates no active extravasation. The micro-catheter and microwire were removed. A final SMA angiogram was performed, through the diagnostic catheter, located in the origin of the superior mesenteric artery. This demonstrates patent branches of the SMA. No active extravasation. The diagnostic catheter was then used, under fluoroscopic guidance, to catheterize the celiac artery. A celiac arteriogram was performed. This demonstrates unremarkable celiac artery branching into hepatic and splenic suppl y. Gastroduodenal and gastroepiploic arteries seen. No significant collateralization between SMA and celiac artery. The diagnostic catheter was used under fluoroscopy guidance to try to catheterize, the origin of the inferior mesenteric artery. However, there is stenosis of the origin of the inferior mesenteric artery, the inferior mesenteric artery is small, as seen on CTA, and could not be catheterized. Catheter, wire and sheath were removed. A 5 [place] Mynx device was used to close the right groin arteriotomy, pressure held and hemostasis achieved. A sterile dressing was applied to the site. The patient tolerated the procedure well and was returned to the PRU in stable condition. EBL: < 5 mL. Complications:None. Impression: 1. Selective superior mesenteric arteriogram and supraselective middle colic and right colic micro-catheterization and arteriography, demonstrates diffuse vasoconstriction and no active extravasation. 2. No embolization indicated. If patient rebleeds, suggest direct visualization under colonoscopy and/or partial colectomy if indicated. Thank you for this referral. Cc Dr. Putnam. Cc Dr. Johan Reeves. BEBO BUTTERFIELD MD Dec 20, 2020 09:31
[2020-12-20] MEDS ORDERED: HYDROCORTISONE 100 MG/2 ML VIAL (J1720 PER 1) IV ONE (12:00)
[2020-12-20] MEDS: D5W/0.45% SODIUM CHLORIDE 1,000 ML IV SCH ×2 (12:18→21:15)
--- NOTE | 2020-12-20 12:37 | IPNPDOC ---
Text Note Date of Service The patient was seen on 12/20/20. NOTE Subjective: Patient stated that she had a few bowel movements with stool coated with red blood. No fever or chills Objective: GENERAL APPEARANCE: NAD HEENT: no scleral icterus, no JVD, EOMI CARDIOVASCULAR: Tachycardic at rate of 110 LUNGS: Diminished lung sounds bilaterally ABDOMEN: soft & not tender w palpation MUSCULOSKELETAL: no cyanosis, no swelling INTEGUMENT: generalized pallor NEUROLOGICAL: cranial nerve function from 2-12 intact, follows commands, speech not dysarthric Assessment and plan: Patient 75 years old female with past medical history of hypertension, diverticulosis, COPD presented to hospital with GI bleed secondary to diverticulosis GI bleed Most likely secondary to diverticulosis GI team plans colonoscopy today, possible hemicolectomy by surgical team Continue to monitor H&H Blood loss anemia Secondary to GI bleed Hemoglobin dropped 8.5 and patient has tachycardia I will give 1 unit of blood COPD Not in acute exacerbation Continue inhalers Hypotension/adrenal insufficiency Multifactorial. Most likely secondary to dehydration and blood loss. There is also possibility for adrenal insufficiency, patient was on the chronic prednisone 5 mg I will give hydrocortisone 100 mg IV Hypertension Hypertensive medications on hold Hypernatremia D5 with half normal saline VS,Fishbone, I+O VS, Fishbone, I+O Laboratory Tests 12/19/20 17:57 12/19/20 21:10 12/20/20 00:56 12/20/20 05:12 12/20/20 09:10 Vital Signs Date Time Temp Pulse Resp B/P (MAP) Pulse Ox O2 Delivery O2 Flow Rate FiO2 12/20/20 12:15 84/53 12/20/20 06:15 94 100 12/20/20 04:00 3.0 12/20/20 00:00 98.2 18 Nasal Cannula I&O- Last 24 Hours up to 6 AM 12/20/20 06:00 Intake Total 5260 ml Output Total 300 ml Balance 4960 ml SUGEY CASTANEDA DO Dec 20, 2020 12:37
[2020-12-20 12:51] LABS: CORTISOL AM 44.3 UG/DL (4.3-22.4)
[2020-12-20] MEDS ORDERED: SIMETHICONE 40MG/0.6ML DROPS 30ML As Ordered ONE (14:48)
[2020-12-20] MEDS ORDERED: LIDOCAINE 2% 100MG/5ML SDV (FOR ANES.) As Ordered ONE (14:49)
[2020-12-20] MEDS ORDERED: propofoL 200 MG/20 ML VIAL As Ordered ONE ×3 (14:49→16:44)
[2020-12-20] MEDS ORDERED: MIDAZOLAM INJ 2MG/2ML VIAL (J2250 PER 1MG) As Ordered ONE (15:19)
[2020-12-20] MEDS ORDERED: CALCIUM CHLORIDE 10% 1 GM/10 ML SYR As Ordered ONE (16:14)
[2020-12-20] MEDS ORDERED: fentaNYL 100 MCG/2 ML INJECTION (J3010) IV PRN (17:20)
[2020-12-20] MEDS ORDERED: ONDANSETRON 4MG/2ML VIAL IV PRN (17:20)
--- NOTE | 2020-12-20 17:23 | ROOR ---
Patient Name: Jackie Langford Procedure Date: 12/20/2020 2:49 PM Date of : 1945 Age: 75 Gender: Female Note Status: Finalized Procedure: Colonoscopy Indications: Rectal bleeding, Gastrointestinal bleeding Providers: Alan Putnam MD Referring MD: Judith MOSHER MD Requesting Provider: Medicines: Monitored Anesthesia Care Complications: No immediate complications. Procedure: Pre-Anesthesia Assessment: - Prior to the procedure, a History and Physical was performed, and patient medications and allergies were reviewed. The patient is competent. The risks and benefits of the procedure and the sedation options and risks were discussed with the patient. All questions were answered and informed consent was obtained. Patient identification and proposed procedure were verified by the physician, the nurse and the anesthesiologist in the procedure room. Mental Status Examination: alert and oriented. Airway Examination: normal oropharyngeal airway and neck mobility. Respiratory Examination: clear to auscultation. CV Examination: normal. Prophylactic Antibiotics: The patient does not require prophylactic antibiotics. Prior Anticoagulants: The patient has taken no previous anticoagulant or antiplatelet agents. ASA Grade Assessment: III (E)- A patient with severe systemic disease. After reviewing the risks and benefits, the patient was deemed in satisfactory condition to undergo the procedure. The anesthesia plan was to use monitored anesthesia care (MAC). Immediately prior to administration of medications, the patient was re-assessed for adequacy to receive sedatives. The heart rate, respiratory rate, oxygen saturations, blood pressure, adequacy of pulmonary ventilation, and response to care were monitored throughout the procedure. The physical status of the patient was re-assessed after the procedure. The Colonoscope was introduced through the anus and advanced to the cecum, identified by appendiceal orifice and ileocecal valve. The colonoscopy was performed with difficulty due to multiple diverticula in the colon, poor bowel prep with stool present, restricted mobility of the colon and a redundant colon. Successful completion of the procedure was aided by withdrawing the scope and replacing with the enteroscope. The patient tolerated the procedure well. The quality of the bowel preparation was poor. The terminal ileum, ileocecal valve, appendiceal orifice, and rectum were photographed. Scope insertion time was 2 minutes. Scope withdrawal time was 9 minutes. The total duration of the procedure was 12 minutes. Findings: The perianal and digital rectal examinations were normal. Hematin (altered blood/jfodzp-elhlsa-oicq material) was found from sigmoid to ascending colon. A moderate amount of stool was found from rectum to ascending colon, interfering with visualization. Multiple small and large-mouthed diverticula were found from sigmoid to ascending colon. There was evidence of past bleeding from the diverticular opening. For hemostasis, one hemostatic clip was successfully placed. There was no bleeding at the end of the procedure. Non-bleeding external and internal hemorrhoids were found during retroflexion. The hemorrhoids were medium-sized. Impression: - Preparation of the colon was poor. - Blood from sigmoid to ascending colon. - Stool from rectum to ascending colon. - Severe diverticulosis from sigmoid to ascending colon. There was evidence of past bleeding from the diverticular opening. Clip was placed. - Non-bleeding external and internal hemorrhoids. - No specimens collected. Recommendation: - Patient has a contact number available for emergencies. The signs and symptoms of potential delayed complications were discussed with the patient. Return to normal activities tomorrow. Written discharge instructions were provided to the patient. - Continue present medications. - Clear liquid diet for 1 day, then advance as tolerated to high fiber diet. - Miralax 1 capful (17 grams) in 8 ounces of water PO BID for atleast 7 days and then adjust dose to have one to two soft bowel movements daily. - Use Protonix (pantoprazole) 40 mg PO twice daily - to be taken in morning (1/2 hour before breakfast) and at bedtime ( atleast 3 hours after last meal) for 4 weeks. - Repeat colonoscopy is not recommended due to current age (66 years or older) for screening purposes. - Return to GI clinic if persistent symptoms or new symptoms. - Do a GI bleeding (tagged RBC) scan if symptoms persist. - Refer to an interventional radiologist if symptoms persist. - Return to primary care physician. Procedure Code(s): --- Professional --- 74305, Colonoscopy, flexible; with control of bleeding, any method Diagnosis Code(s): --- Professional --- K64.8, Other hemorrhoids K57.31, Diverticulosis of large intestine without perforation or abscess with bleeding K92.2, Gastrointestinal hemorrhage, unspecified K62.5, Hemorrhage of anus and rectum CPT copyright 2019 [employer]. All rights reserved. The codes documented in this report are preliminary and upon executive producer promos review may be revised to meet current compliance requirements. Alan Putnam MD Alan Putnam MD 12/20/2020 5:22:44 PM Electronically signed by Alan Putnam MD Number of Addenda: 0 Note Initiated On: 12/20/2020 2:49 PM Estimated Blood Loss: Estimated blood loss: none.
[2020-12-20] MEDS ORDERED: PANTOPRAZOLE 40MG VIAL (C9113 PER 1) IV SCH (18:30)
[2020-12-20 22:55] LABS: HEMATOCRIT 31.3 % (36.0-47.0)
[2020-12-21] VITALS (93 sets, daily range): BP systolic 84–159; BP diastolic 44–84
[2020-12-21 03:48] LABS: HEMATOCRIT 31.1 % (36.0-47.0); MEAN CORPUSCULAR HEMOGLOBIN 29.9 pg (27.0-33.0); MEAN CORPUSCULAR HGB CONC 32.2 g/dl (32.0-36.5); MEAN CORPUSCULAR VOLUME 93.1 fl (80.0-96.0); PLATELET COUNT, AUTOMATED 162 10^3/uL (150-450); RED BLOOD COUNT 3.34 10^6/uL (4.00-5.40); WHITE BLOOD COUNT 19.3 10^3/uL (4.0-10.0)
[2020-12-21 04:19] LABS: BLOOD UREA NITROGEN 40 MG/DL (7-18); CALCIUM LEVEL 6.9 MG/DL (8.8-10.2); CARBON DIOXIDE LEVEL 26 MEQ/L (21-32); CHLORIDE LEVEL 109 MEQ/L (98-107); CREATININE FOR GFR 1.31 MG/DL (0.55-1.30); GLOMERULAR FILTRATION RATE 41.9 (>39); GLUCOSE, FASTING 190 MG/DL (70-100); MAGNESIUM LEVEL 1.7 MG/DL (1.8-2.4); POTASSIUM SERUM 4.4 MEQ/L (3.5-5.1); SODIUM LEVEL 141 MEQ/L (136-145); TROPONIN I < 0.02 NG/ML (< 0.10)
[2020-12-21] MEDS: OCTREOTIDE ACETATE 100MCG/ML VIAL (J2354 PER 25MCG) IV SCH (05:26)
[2020-12-21] MEDS: NOREPINEPHRINE BITARTRATE 16 MG in D5W 492 ML IV SCH ×2 (06:03→17:52)
--- NOTE | 2020-12-21 07:18 | REPVR ---
PROCEDURE INFORMATION: Exam: US Retroperitoneal Limited, Kidneys Exam date and time: 12/21/2020 5:28 AM Age: 75 years old Clinical indication: Condition or disease; Other: Gi bleed; Additional info: Jay Jay TECHNIQUE: Imaging protocol: Real-time ultrasound of the retroperitoneum with image documentation. Examination was focused on the kidneys. COMPARISON: CT ABD PELVIS W/O FOL BY WIT 12/19/2020 4:35 PM FINDINGS: Right kidney: The right kidney measures 8.2 x 4.2 x 4.1 cm. There is no right renal mass. There is no right-sided hydronephrosis. There is an exophytic lateral right mid renal cyst measuring 2.3 x 2.2 x 2.2 cm. Left kidney: The left kidney measures 8.3 x 4.3 x 4.9 cm. There is no left renal mass. There is no left-sided hydronephrosis. There is a large exophytic left upper renal pole cyst measuring 9.4 x 8.0 x 7.6 cm. IMPRESSION: Relatively small kidneys with bilateral simple cysts. No hydronephrosis. Electronically signed by: Rakesh Andres On 12/21/2020 07:17:33 AM
[2020-12-21] MEDS ORDERED: ALPRAZolam 0.25 MG TAB PO PRN (07:30)
[2020-12-21] MEDS: ADVAIR HFA 230/21MCG INHALER INH SCH ×2 (07:51→20:00)
[2020-12-21] MEDS ORDERED: TIOTROPIUM INHALER/CAPSULE (SPIRIVA) INH SCH (08:00)
[2020-12-21] MEDS ORDERED: D5W/0.45% SODIUM CHLORIDE 1,000 ML IV ONE (08:00)
[2020-12-21] MEDS ORDERED: AZITHROMYCIN 250MG TABLET PO SCH (09:00)
[2020-12-21] MEDS: D5W/0.45% SODIUM CHLORIDE 1,000 ML IV SCH ×2 (09:01→10:32)
[2020-12-21] MEDS ORDERED: NS 1,000 ML IV ONE ×2 (09:25→11:55)
[2020-12-21] MEDS: FERROUS SULFATE 325MG TAB PO SCH ×2 (09:39→20:18)
[2020-12-21] MEDS: CYANOCOBALAMIN 500 MCG TAB PO SCH (09:39)
[2020-12-21] MEDS: HYDROCORTISONE 100 MG/2 ML VIAL (J1720 PER 1) IV SCH ×2 (09:39→09:45)
[2020-12-21] MEDS: MIRALAX *UNIT DOSE* 17GM PACKET PO SCH ×2 (09:39→20:19)
[2020-12-21] MEDS: PANTOPRAZOLE 40MG TAB (PROTONIX) PO SCH ×2 (09:39→20:19)
[2020-12-21] MEDS ORDERED: LR 1,000 ML IV ONE ×2 (10:35→13:15)
--- NOTE | 2020-12-21 11:06 | IPNPDOC ---
Text Note Date of Service The patient was seen on 12/21/20. NOTE Subjective: Patient stated that she has a low energy and generalized fatigue Objective: GENERAL APPEARANCE: NAD HEENT: no scleral icterus, no JVD, EOMI CARDIOVASCULAR: Tachycardic at rate of 105 LUNGS: Diminished lung sounds bilaterally ABDOMEN: soft & not tender w palpation MUSCULOSKELETAL: no cyanosis, no swelling INTEGUMENT: generalized pallor NEUROLOGICAL: cranial nerve function from 2-12 intact, follows commands, speech not dysarthric Assessment and plan: Patient 75 years old female with past medical history of hypertension, diverticulosis, COPD presented to hospital with GI bleed secondary to diverticulosis GI bleed/acute diverticulosis Most likely secondary to diverticulosis GI team proceeded with colonoscopy on 12/20/2020. Patient was found to have Severe diverticulosis from sigmoid to ascending colon. There was evidence of past bleeding from the diverticular opening. Clip was placed. Recommended Miralax 1 capful (17 grams) in 8 ounces of water PO BID for at least 7 days and then adjust dose to have one to two soft bowel movements daily. Protonix (pantoprazole) 40 mg PO twice daily Continue to monitor H&H. Hemoglobin stable today Blood loss anemia Secondary to GI bleed Hemoglobin of 10. Most likely bleeding stopped, patient not pale, warm. She did not have any bloody movement since yesterday Dehydration Secondary to blood loss We will continue to hydrate the patient with IV fluid Hyperchloremic acidosis Continue IV with D5 and half normal saline LR for resuscitation is more preferable than normal saline, according to literature LR has less frequency in development of hyperchloremic acidosis compared to normal saline COPD Not in acute exacerbation Continue inhalers Hypotension Multifactorial. Most likely secondary to dehydration and blood loss. There was also possibility for adrenal insufficiency, patient was on the chronic prednisone 5 mg. However cortisol level above normal limit DC hydrocortisone IV. Will continue home dose of prednisone 5 mg p.o. Continue Levophed IV with titration Hypertension Hypertensive medications on hold Hypernatremia Resolved NOA Most likely secondary to volume depletion and anemia Continue IV fluid Continue to monitor VS,Fishbone, I+O VS, Fishbone, I+O Laboratory Tests 12/20/20 22:48 12/21/20 03:35 12/21/20 03:36 Vital Signs Date Time Temp Pulse Resp B/P (MAP) Pulse Ox O2 Delivery O2 Flow Rate FiO2 12/21/20 10:30 103 104/53 (70) 96 Nasal Cannula 2.0 12/21/20 08:00 97.4 23 I&O- Last 24 Hours up to 6 AM 12/21/20 06:00 Intake Total 5329 ml Output Total 832 ml Balance 4497 ml SUGEY CASTANEDA DO Dec 21, 2020 11:06
[2020-12-21 11:20] LABS: HEMATOCRIT 30.3 % (36.0-47.0); HEMOGLOBIN 9.5 g/dl (12.0-15.5)
[2020-12-21 14:05] LABS: CALCIUM LEVEL 6.5 MG/DL (8.8-10.2); CREATININE FOR GFR 1.22 MG/DL (0.55-1.30); GLOMERULAR FILTRATION RATE 45.5 (>39); POTASSIUM SERUM 4.1 MEQ/L (3.5-5.1)
--- NOTE | 2020-12-21 15:17 | ROOPDOC ---
[facility] Report Of Operation Report of Operation DATE OF PROCEDURE: 12/21/20 PROCEDURE PERFORMED: Femoral arterial line (left side). PREPROCEDURE DIAGNOSES: Hemorrhagic shock. POSTPROCEDURE DIAGNOSES: Hemorrhagic shock. SURGEON: Dr. Gabe MD Consent obtained: From patient, verbal consent. ANESTHESIA: Local 1% lidocaine. ESTIMATED BLOOD LOSS: Approximately 5 cc. COMPLICATIONS: None. PROCEDURE NOTE: After consent was obtained from patient, patient was placed flat on bed. Left groin was sterilized with chlorhexidine and draped in sterile fashion. Sterile gloves and hat were used for the procedure. The area of left femoral artery was anesthetized with 1% lidocaine. Left femoral artery was visualized using vascular ultrasound. Left femoral artery was cannulated with introducer needle and arterial catheter was threaded through guidewire using Salinger technique. Arterial catheter was connected to the transducer and arterial waveforms were appreciated. There is significant pulse pressure variation and patient received 1 L of lactated ringer. Patient tolerated the procedure without complication. Estimated blood loss is about 5 cc. ADRIENNE GREENE MD Dec 21, 2020 15:17
--- NOTE | 2020-12-21 15:19 | CR.PDOC ---
General Date of Consultation: Dec 21, 2020 Referring Provider: SUGEY CASTANEDA DO Primary Care Physician: LINDSAY BOURGEOIS Attending Physician: SUGEY CASTANEDA DO Consultation REASON FOR CONSULTATION/CHIEF COMPLAINT: Hemorrhagic shock secondary to GI bleed. HISTORY OF PRESENT ILLNESS: This is a 75-year-old female with past medical history of chronic hypoxic respiratory failure secondary to COPD, hypertension, history of diverticular bleed presented to hospital on December 19, 2020 with complaint of GI bleed. Upon mission to the hospital patient had a acute drop in her hemoglobin compared to her baseline. She was taken to IR but did not have any intervention done due to lack of contrast extravasation during the angiography. She also had a colonoscopy which showed blood extending from sigmoid to ascending colon with partially prep bowel. There was no evidence of active bleeding identified on colonoscopy. Patient received total of 2 and half liters of isotonic crystalloid on admission along with 5 units of blood during hospitalization. Despite intervention, transfusion and resuscitation effort, patient continues to have bloody bowel movement. She is currently on vasopressor support. Therefore ICU was consulted for further recommendation. She has received total of 2.5 L of IV fluid for resuscitation today. She denies of fever, chills, abdominal pain, nausea, vomiting, chest pain, shortness of breath, orthopnea. ALLERGIES: Please see below. HOME MEDICATIONS: Please see below. PAST MEDICAL HISTORY: 1. Hypertension. 2. COPD on 2 L of oxygen. 3. History of diverticular bleed. PAST SURGICAL HISTORY: 1. Left and right total hip. 2. Back surgery. 3. Cataracts. SOCIAL HISTORY: Patient denies smoking, alcohol, and illicit drug use. Patient is a former smoker. Patient used to work as an administrative support clerk at [employer] FAMILY HISTORY: Patient denies any family history and says her mother is 103 and alive REVIEW OF SYSTEMS: CONSTITUTIONAL: Denies fever, chills, weight loss, night sweats. HEENT: Denies sore throat. CARDIOVASCULAR: Denies chest pain or palpitation, orthopnea. RESPIRATORY: Denies shortness of breath, cough, hemoptysis. GENITOURINARY: Denies dysuria. MUSCULOSKELETAL: Denies myalgia or arthralgia. GASTROINTESTINAL: Admits to bright red blood per rectum, denies nausea, vomiting, abdominal pain. SKIN: Denies rash. NEUROLOGICAL: Denies any focal weakness or slurred speech. PSYCHIATRIC: Denies depression. ENDOCRINE: Denies weight change. HEMATOLOGIC/LYMPHATIC: Admits to bleeding through GI tract. ALLERGIC/IMMUNOLOGIC: Denies allergy. PHYSICAL EXAMINATION: VITAL SIGNS: Please see below. GENERAL APPEARANCE: Patient is a mild distress but alert and oriented, she looks weak. HEENT: No evidence of JVD. RESPIRATORY: Very distant breath sounds with mild expiratory wheeze. CARDIOVASCULAR: Regular rate rhythm. ABDOMEN: Soft but slightly distended, nontender to palpation. EXTREMITIES: Pitting edema of all 4 extremities. NEUROLOGICAL: No gross focal neurological deficit. PSYCHIATRIC: No flat affect. LABORATORY DATA: Please see below. ASSESSMENT/PLAN: This is a 75-year-old female with past medical history of chronic hypoxic respite failure secondary to COPD, hypertension, history of diverticular bleed admitted to the hospital with lower GI bleed and hemorrhagic shock. 1. Hemorrhagic shock. 2. Acute blood loss anemia. 3. History is a diverticular bleed 4. Chronic hypoxic respiratory failure secondary to severe COPD 5. NOA Plan: -She has received total of 5 units of blood. She has received total of 5 L of fluid resuscitation overall. Despite this resuscitation efforts she continues to be hypotensive requiring vasopressor support. Bedside [id number] echocardiogram done show very hyperdynamic left ventricle with very low filling pressure. IVC is collapsible more than 50%. All of this sonographic evident indicate under resuscitated cardiovascular system. Arterial line was inserted and showed a large pulse pressure variation. Therefore patient was given ad ditional 1 L of lactated Ringer. She did have dramatic response to 3 and half liters of isotonic crystalloid as evident by decreasing her requirement of norepinephrine. Most importantly, we need to identify the source of her hemorrhagic shock. Given the newly developed NOA, I do think it is in the best interest of patient to get another CT angiography of the abdomen and pelvis without risk for developing renal failure requiring dialysis. Therefore I have ordered a tagged RBC nuclear scan. If a bleeding source is identified, we will need to notify GI or IR to repeat procedure which she had on admission. Vital Signs/I&O Vital Signs Date Time Temp Pulse Resp B/P (MAP) Pulse Ox O2 Delivery O2 Flow Rate FiO2 12/21/20 12:04 105 149/65 (93) 98 Nasal Cannula 3.0 811/21 12:00 96.9 21 I&O- Last 24 Hours up to 6 AM0 12/21/20 06:00 Intake Total 5329 ml Output Total 832 ml Balance 4497 ml Laboratory Data Labs 24H Laboratory Tests 2 12/21/20 01:10: Urine Color YELLOW, Urine Appearance CLOUDYH, Urine pH 5.0, Urine Specific [place] 1.031, Urine Protein 1+H, Urine Glucose (UA) NEGATIVE, Urine Ketones NEGATIVE, Urine Blood 3+H, Urine Nitrite NEGATIVE, Urine Bilirubin NEGATIVE, Urine Urobilinogen 0.2, Urine Leukocyte Esterase NEGATIVE, Urine WBC (Auto) 8H, Urine RBC (Auto) 82H, Urine Hyaline Casts (Auto) 0, Urine Bacteria (Auto) NEGATI VE, Urine Squamous Epithelial Cells 1, Urine Mucus (Auto) SMALL, Urine Sperm (Auto) 12/21/20 03:35: Anion Gap 6L, Glomerular Filtration Rate 41.9, Calcium Level 6.9L, Magnesium L evel 1.7L, Troponin I < 0.02 12/21/20 03:36: Nucleated Red Blood Cells % (auto) 0.3H, Lactic Acid Level 0.6 12/21/20 12:48: Anion Gap 6L, Glomerular Filtration Rate 45.5, Calcium Level 6.5L CBC/BMP Laboratory Tests 12/20/20 22:48 12/21/20 03:35 12/21/20 03:36 12/21/20 11:04 12/21/20 12:48 Microbiology Microbiology 12/21/20 Blood Culture, Received Pending 12/21/20 Blood Culture, Received Pending Allergies Coded Allergies: nickel (Verified Allergy, Intermediate, rash, 08/18/20) Home Medications Scheduled Aspirin (Aspirin EC) 81 Mg Tablet.dr, 81 MG PO DAILY, (Reported) Atorvastatin Calcium (Atorvastatin Calcium) 20 Mg Tab, 20 MG PO QHS, (Reported) Azithromycin (Azithromycin) 250 Mg Tablet, 250 MG PO 3XW, (Reported) MON/WED/FRI Calcium/Magnesium/Zinc (Isfxzzv-Nulkpfezi-Ppaf Tablet) 1 Each Tablet, 1 TAB PO DAILY, (Reported) Cholecalciferol (Vitamin D3) (Vitamin D3) 1,000 Unit Tablet, 1,000 UNITS PO DAILY, (Reported) Cyanocobalamin (Vitamin B-12) (Vitamin B-12) 1,000 Mcg Tab, 1,000 MCG PO DAILY, (Reported) Dexlansoprazole (Dexilant) 60 Mg Cap.bp, 60 MG PO DAILY, (Reported) Ferrous Sulfate (Ferrous Sulfate) 324 Mg Tablet.dr, 324 MG PO DAILY, (Reported) Lisinopril/Hydrochlorothiazide (Lisinopril-Hctz 10-12.5 mg Tab) 1 Each Tablet, 0.5 TAB PO QHS, (Reported) Mirtazapine (Mirtazapine) 45 Mg Tab.rapdis, 45 MG PO QHS, (Reported) Multivitamins (Thera M Plus Tablet) 1 Each Tablet, 1 TAB PO DAILY, (Reported) [place]-3 Fatty Acids/Fish Oil (Fish Oil 1,000 mg Capsule) 1 Each Capsule, 1,000 MG PO DAILY, (Reported) Paroxetine HCl (Paroxetine) 20 Mg Tablet, 20 MG PO QHS, (Reported) Prednisone (Prednisone) 5 Mg Tablet, 5 MG PO DAILY, (Reported) Salmeterol/Fluticasone (Advair 500-50 Diskus) 1 Each Blst.w.dev, 1 PUFF INH BID, (Reported) Tiotropium [place] (Spiriva Respimat) 4 Gm Mist.inhal, 2 PUFFS INH DAILY, (Reported) Scheduled PRN Albuterol Sulfate (Albuterol Sulfate) 2.5 Mg/0.5 Ml Vial.neb, 2.5 MG INH QID PRN for SOB/WHEEZING, (Reported) Alprazolam (Xanax) 0.25 Mg Tablet, 0.25 MG PO DAILY PRN for ANXIETY, (Reported) Guaifenesin (Mucinex) 1,200 Mg Tab.er.12h, 1,200 MG PO BID PRN for CONGESTION, (Reported) Ipratropium/Albuterol Sulfate (Combivent Respimat 20-100 Mcg) 4 Gm Mist.inhal, 2 PUFF INH Q6H PRN for SOB/WHEEZING, (Reported) ADRIENNE GREENE MD Dec 21, 2020 15:19
--- NOTE | 2020-12-21 15:58 | REP ---
INDICATION: GI bleed. COMPARISON: None. TECHNIQUE/RADIOTRACER AND DOSE: After the intravenous administration of 27.50 mCi of technetium 99 M ultra tag a GI bleed scintiscan was performed FINDINGS: There is no abnormal activity seen on the flow portion of the exam. Dynamic scintigraphy was obtained at 5 mm intervals up to 60 minutes. No abnormal activity is seen on the dynamic scintiscans. IMPRESSION: No scintigraphic evidence of an active GI bleed. <Electronically signed by Taras Fuller > 12/21/20 [id number]
[2020-12-21] MEDS: IPRATROPIUM 0.5MG/ALBUTEROL 2.5MG INH SOL UD 3ML (DUONEB) NEB PRN ×2 (16:29→20:33)
[2020-12-21 16:31] LABS: ABG BASE EXCESS -10.8 (-2.0-2.0); ABG HCO3 21.1 MEQ/L (22.0-26.0); ABG O2 SATURATION 85.2 % (95.0-99.0); ABG PARTIAL PRESSURE CO2 85.9 mmHg (35.0-45.0); ABG PARTIAL PRESSURE O2 50.7 mmHg (75.0-100.0); ABG STANDARD HCO3 15.7 MEQ/L (22.0-26.0); ABG TOTAL CO2 23.8 MEQ/L (23.0-31.0); ABG pH (ARTERIAL) 7.009 UNITS (7.350-7.450)
[2020-12-21 17:58] LABS: ABG BASE EXCESS -10.2 (-2.0-2.0); ABG O2 SATURATION 95.6 % (95.0-99.0); ABG PARTIAL PRESSURE O2 86.3 mmHg (75.0-100.0); ABG STANDARD HCO3 16.3 MEQ/L (22.0-26.0); ABG TOTAL CO2 24.8 MEQ/L (23.0-31.0)
[2020-12-21 17:59] LABS: ABG pH (ARTERIAL) 7.001 UNITS (7.350-7.450)
[2020-12-21 18:18] LABS: HEMATOCRIT 31.2 % (36.0-47.0); HEMOGLOBIN 9.7 g/dl (12.0-15.5)
[2020-12-21 18:39] LABS: ALBUMIN 2.4 GM/DL (3.2-5.2); CALCIUM LEVEL 6.9 MG/DL (8.8-10.2); CREATININE FOR GFR 1.15 MG/DL (0.55-1.30); GLOMERULAR FILTRATION RATE 48.7 (>39); PHOSPHORUS LEVEL 4.7 MG/DL (2.5-4.9); POTASSIUM SERUM 4.4 MEQ/L (3.5-5.1)
[2020-12-21 19:32] LABS: MAGNESIUM LEVEL 1.6 MG/DL (1.8-2.4)
[2020-12-21] MEDS ORDERED: MAGNESIUM SULFATE IN WATER 2 GM in IV 1 EA IV STA ×2 (20:56)
[2020-12-21 20:59] LABS: ABG BASE EXCESS -8.1 (-2.0-2.0); ABG HCO3 21.9 MEQ/L (22.0-26.0); ABG O2 SATURATION 95.9 % (95.0-99.0); ABG PARTIAL PRESSURE O2 86.5 mmHg (75.0-100.0); ABG STANDARD HCO3 17.9 MEQ/L (22.0-26.0); HEMATOCRIT 29.2 % (36.0-47.0); HEMOGLOBIN 9.2 g/dl (12.0-15.5)
[2020-12-21 21:00] LABS: ABG PARTIAL PRESSURE CO2 70.6 mmHg (35.0-45.0); ABG pH (ARTERIAL) 7.109 UNITS (7.350-7.450)
[2020-12-21] MEDS ORDERED: PARoxetine 20MG TABLET PO SCH (21:00)
[2020-12-21] MEDS ORDERED: ATORVASTATIN 20 MG TAB PO SCH (21:00)
[2020-12-21] MEDS ORDERED: MIRTAZAPINE 15 MG TAB PO SCH (21:00)
[2020-12-21] MEDS: MAG SULF 1GM/100ML (MAG RUN) SINGLE DOSE IV SCH ×4 (21:30→23:00)
[2020-12-22] VITALS (21 sets, daily range): BP systolic 81–153; BP diastolic 45–82
[2020-12-22] MEDS: NOREPINEPHRINE BITARTRATE 16 MG in D5W 492 ML IV SCH (01:40)
[2020-12-22 04:56] LABS: HEMATOCRIT 26.6 % (36.0-47.0); HEMOGLOBIN 8.6 g/dl (12.0-15.5); MEAN CORPUSCULAR HGB CONC 32.3 g/dl (32.0-36.5); MEAN CORPUSCULAR VOLUME 92.7 fl (80.0-96.0); PLATELET COUNT, AUTOMATED 135 10^3/uL (150-450); RED BLOOD COUNT 2.87 10^6/uL (4.00-5.40); WHITE BLOOD COUNT 12.4 10^3/uL (4.0-10.0)
[2020-12-22 05:31] LABS: CALCIUM LEVEL 6.8 MG/DL (8.8-10.2); CREATININE FOR GFR 1.1 MG/DL (0.55-1.30); GLOMERULAR FILTRATION RATE 51.3 (>39); MAGNESIUM LEVEL 2.1 MG/DL (1.8-2.4); POTASSIUM SERUM 4.1 MEQ/L (3.5-5.1)
[2020-12-22] MEDS ORDERED: BUDESONIDE 0.5 MG/2 ML INHALATION SUSPENSION INH SCH (08:00)
[2020-12-22] MEDS: IPRATROPIUM 0.5MG/ALBUTEROL 2.5MG INH SOL UD 3ML (DUONEB) NEB SCH ×2 (08:08→13:10)
[2020-12-22 08:09] LABS: ABG BASE EXCESS -5.9 (-2.0-2.0); ABG HCO3 22.1 MEQ/L (22.0-26.0); ABG O2 SATURATION 98.2 % (95.0-99.0); ABG PARTIAL PRESSURE CO2 57.7 mmHg (35.0-45.0); ABG PARTIAL PRESSURE O2 134.5 mmHg (75.0-100.0); ABG STANDARD HCO3 19.6 MEQ/L (22.0-26.0); ABG TOTAL CO2 23.9 MEQ/L (23.0-31.0)
--- NOTE | 2020-12-22 08:15 | REP ---
INDICATION: dyspnea. COMPARISON: 12/19/2020 TECHNIQUE: AP view FINDINGS: A CVP line is in place with the tip in the superior vena cava. The lungs are clear and fully expanded. The heart is not enlarged. There is no failure. A calcification is noted in the left shoulder joint. IMPRESSION: No active disease. No interval change. <Electronically signed by Arnoldo Bird > 12/22/20 0811
[2020-12-22 08:18] LABS: ABG pH (ARTERIAL) 7.202 UNITS (7.350-7.450)
[2020-12-22] MEDS ORDERED: predniSONE 20 MG TAB PO SCH (09:00)
[2020-12-22] MEDS ORDERED: predniSONE 5 MG TAB PO SCH (09:00)
--- NOTE | 2020-12-22 10:22 | IPNPDOC ---
Subjective Date Seen The patient was seen on 12/22/20. Subjective Chief Complaint/HPI Patient was seen and examined. Patient is feeling sleepy. She denies of fever, chills, cough, chest pain or palpitation, blood in the stool. General: Denies: Chills, Fatigue Constitutional: Denies: Fever ENT: Denies: Sore Throat Skin: Denies: Rash Pulmonary: Reports: Dyspnea; Denies: Cough Cardiovascular: Denies: Chest Pain, Palpitations, Orthopnea Gastrointestinal: Denies: Nausea, Vomiting, Abdominal Pain Neurological: Denies: Weakness, Numbness Objective Physical Examination General Exam: Positive: Alert, Cooperative, No Acute Distress Eye Exam: Negative: Sclera icteric ENT Exam: Positive: Atraumatic Neck Exam: Positive: Supple; Negative: JVD Chest Exam: Positive: Wheezing, Diminished (Diminished breath sound bilaterally but slight improvement from yesterday) Heart Exam: Positive: Rate Normal, Regular Rhythm Abdomen Exam: Positive: BS Hypoactive, Soft; Negative: Tenderness Extremity Exam: Positive: Edema; Negative: Clubbing Assessment /Plan Assessment This is a 75-year-old female with past medical history of chronic hypoxic respite failure secondary to COPD, hypertension, history of diverticular bleed admitted to the hospital with lower GI bleed and hemorrhagic shock. 1. Hemorrhagic shock - secondary to suspected diverticular bleed (resolved) 2. Acute blood loss anemia. 3. History is a diverticular bleed 4. Acute on chronic hypoxic respiratory failure secondary to COPD exacerbation 5. NOA Plan/VTE VTE Prophylaxis Ordered?: Yes Plan 1. We will continue with BiPAP 20/6, FiO2 40%. 2. Treatments was COPD exacerbation; inhalers has been changed to nebulizers. She is already on azithromycin. Prednisone 60 mg has been switched to methylpr ednisolone by primary. 3. Status post 5 units of blood transfusion for suspected diverticular bleed. She is no longer having any more GI bleed or acute blood loss anemia. We will continue to monitor her serial H&H. Kidney function is improving. Disposition Continue ICU care VS, I&O, 24H, Fishbone Vital Signs/I&O Vital Signs Date Time Temp Pulse Resp B/P (MAP) Pulse Ox O2 Delivery O2 Flow Rate FiO2 12/22/20 08:26 30 12/22/20 07:00 91 18 110/56 (80) 94 NIPPV (BIPAP/CPAP) 106/52 12/22/20 04:00 98.2 12/22/20 02:30 2.0 I&O- Last 24 Hours up to 6 AM 12/22/20 06:00 Intake Total 5574.1 ml Output Total 500 ml Balance 5074.1 ml Laboratory Data 24H LABS Laboratory Tests 2 12/21/20 12:48: Anion Gap 6L, Glomerular Filtration Rate 45.5, Calcium Level 6.5L, Magnesium Level 1.6L 12/21/20 16:14: Blood Gas Bicarbonate Standard 15.7L, Arterial Blood pH 7.009*L, Arterial Blood Partial Pressure CO2 85.9*H, Arterial Blood Partial Pressure O2 50.7L, Arterial Blood Total CO2 23.8, Arterial Blood HCO3 21.1L, Arterial Blood Base Excess - 10.8L, Arterial Blood Oxygen Saturation 85.2L 12/21/20 17:38: Blood Gas Bicarbonate Standard 16.3L, Arterial Blood pH 7.001*L, Arterial Blood Partial Pressure CO2 91.0*H, Arterial Blood Partial Pressure O2 86.3, Arterial Blood Total CO2 24.8, Arterial Blood HCO3 22.0, Arterial Blood Base Excess - 10.2L, Arterial Blood Oxygen Saturation 95.6 12/21/20 17:42: Anion Gap 2L, Glomerular Filtration Rate 48.7, Calcium Level 6.9L, Phosphorus Level 4.7, Albumin 2.4L 12/21/20 20:48: Blood Gas Bicarbonate Standard 17.9L, Arterial Blood pH 7.109*L, Arterial Blood Partial Pressure CO2 70.6*H, Arterial Blood Partial Pressure O2 86.5, Arterial Blood Total CO2 24.0, Arterial Blood HCO3 21.9L, Arterial Blood Base Excess - 8.1L, Arterial Blood Oxygen Saturation 95.9 12/22/20 04:44: Nucleated Red Blood Cells % (auto) 0.3H, Anion Gap 4L, Glomerular Filtration R ate 51.3, Calcium Level 6.8L, Magnesium Level 2.1, [id number]-Type Natriuretic Peptide 3111H 12/22/20 07:55: Blood Gas Bicarbonate Standard 19.6L, Arterial Blood pH 7.202*L, Arterial Blood Partial Pressure CO2 57.7H, Arterial Blood Partial Pressure O2 134.5H, Arterial Blood Total CO2 23.9, Arterial Blood HCO3 22.1, Arterial Blood Base Excess - 5.9L, Arterial Blood Oxygen Saturation 98.2 CBC/BMP Laboratory Tests 12/21/20 11:04 12/21/20 12:48 12/21/20 17:42 12/21/20 20:48 12/22/20 04:44 Microbiology Microbiology 12/21/20 Blood Culture - Preliminary, Resulted No growth after 24 hours . All specim... 12/21/20 Blood Culture - Preliminary, Resulted No growth after 24 hours . All specim... ADRIENNE GREENE MD Dec 22, 2020 10:22
[2020-12-22] MEDS: PANTOPRAZOLE 40MG TAB (PROTONIX) PO SCH (10:39)
[2020-12-22] MEDS: FERROUS SULFATE 325MG TAB PO SCH (10:39)
[2020-12-22] MEDS: CYANOCOBALAMIN 500 MCG TAB PO SCH (10:39)
[2020-12-22] MEDS: MIRALAX *UNIT DOSE* 17GM PACKET PO SCH (10:39)
--- NOTE | 2020-12-22 11:47 | IPNPDOC ---
Text Note Date of Service The patient was seen on 12/22/20. NOTE Subjective: Patient developed respiratory distress yesterday evening she was placed on a BiPAP. No fever overnight, no bowel movements with blood. Objective: GENERAL APPEARANCE: NAD HEENT: no scleral icterus, no JVD, EOMI CARDIOVASCULAR: S1-S2 LUNGS: Wheezes bilaterally ABDOMEN: soft & not tender w palpation MUSCULOSKELETAL: no cyanosis, no swelling INTEGUMENT: generalized pallor NEUROLOGICAL: cranial nerve function from 2-12 intact, follows commands, speech not dysarthric Assessment and plan: Patient 75 years old female with past medical history of hypertension, di verticulosis, COPD presented to hospital with GI bleed secondary to diverticulosis GI bleed/acute diverticulosis Most likely secondary to diverticulosis GI team proceeded with colonoscopy on 12/20/2020. Patient was found to have Severe diverticulosis from sigmoid to ascending colon. There was evidence of past bleeding from the diverticular opening. Clip was placed. Recommended Miralax 1 capful (17 grams) in 8 ounces of water PO BID for at least 7 days and then adjust dose to have one to two soft bowel movements daily. Protonix (pantoprazole) 40 mg PO twice daily Continue to monitor H&H. Hemoglobin continues to be stable today Acute hypercarbic respiratory failure Secondary to COPD exacerbation Continue inhalers Solu-Medrol IV, continue BiPAP Blood loss anemia Secondary to GI bleed Most likely bleeding stopped, patient not pale, warm. She did not have any bloody movement since yesterday. Bleeding scan negative Dehydration Secondary to blood loss Resolved after fluid resuscitation Hyperchloremic acidosis IV fluid stopped COPD Not in acute exacerbation Continue inhalers Hypotension Resolved Hypertension Hypertensive medications on hold Hypernatremia Resolved NOA Resolved VS,Fishbone, I+O VS, Fishbone, I+O Laboratory Tests 12/21/20 12:48 12/21/20 17:42 12/21/20 20:48 12/22/20 04:44 Vital Signs Date Time Temp Pulse Resp B/P (MAP) Pulse Ox O2 Delivery O2 Flow Rate FiO2 12/22/20 08:26 30 12/22/20 07:00 91 18 110/56 (80) 94 NIPPV (BIPAP/CPAP) 106/52 12/22/20 04:00 98.2 12/22/20 02:30 2.0 I&O- Last 24 Hours up to 6 AM 12/22/20 06:00 Intake Total 5574.1 ml Output Total 500 ml Balance 5074.1 ml SUGEY CASTANEDA DO Dec 22, 2020 11:47
[2020-12-22] MEDS ORDERED: methylPREDNISolone 40MG 1ML VIAL IV SCH (14:00)
[2020-12-22] MEDS ORDERED: MORPHINE 2 MG/ML 1ML VIAL (J2270) IV PRN (15:55)
[2020-12-22] MEDS ORDERED: LORazepam 2 MG/ML VIAL IV PRN (15:55)
[2020-12-22] MEDS ORDERED: LORazepam 1 MG TAB PO PRN (15:55)
[2020-12-22] MEDS ORDERED: HYOSCYAMINE SULFATE 0.125 MG SUBL TABLET PO PRN (15:55)
[2020-12-22] MEDS ORDERED: ONDANSETRON 4MG/2ML VIAL IV PRN (15:55)
[2020-12-22] MEDS ORDERED: MORPHINE 10MG/0.5ML ORAL CONCENTRATE SOLUTION U/D SL PRN (15:55)
[2020-12-22] MEDS ORDERED: ATROPINE SULFATE 1% OP SOLN 2 ML BTL SL PRN (15:55)
[2020-12-22] MEDS ORDERED: BISACODYL 10 MG SUPP PR PRN (15:55)
[2020-12-22] MEDS ORDERED: FLEET ENEMA PR PRN (15:55)
[2020-12-22] MEDS ORDERED: SCOPOLAMINE 1MG TRANSDERMAL PATCH TOP PRN (15:55)
[2020-12-22] MEDS ORDERED: ONDANSETRON 4 MG ORAL DISINTEGRATING TAB PO PRN (15:55)
--- NOTE | 2020-12-23 18:30 | DS.PDOC ---
Discharge Summary General Date of Admission Dec 19, 2020 at 14:16 Date of Discharge 12/23/20 Discharge Summary PROCEDURES PERFORMED DURING STAY: [None]. ADMITTING DIAGNOSES: GI bleed/acute diverticulosis Blood loss anemia Dehydration Hyperchloremic acidosis COPD Hypotension Hypernatremia Hypotension Hypernatremia NOA Acute hypercarbic respiratory failure DISCHARGE DIAGNOSES: GI bleed/acute diverticulosis Blood loss anemia Dehydration Hyperchloremic acidosis COPD Hypotension Hypernatremia Hypotension Hypernatremia NOA Acute hypercarbic respiratory failure COMPLICATIONS/CHIEF COMPLAINT: Gi Bleed, Hypovolemia Due To Hemmorage. HISTORY OF PRESENT ILLNESS: Patient 75 years old female with past medical history of hypertension, diverticulosis, COPD presented to hospital with GI bleed secondary to diverticulosis HOSPITAL COURSE:GI bleed/acute diverticulosis Most likely secondary to diverticulosis GI team proceeded with colonoscopy on 12/20/2020. Patient was found to have Severe diverticulosis from sigmoid to ascending colon. There was evidence of past bleeding from the diverticular opening. Clip was placed. Recommended Miralax 1 capful (17 grams) in 8 ounces of water PO BID for at least 7 days and then adjust dose to have one to two soft bowel movements daily. Subsequently patient developed COPD exacerbation. On 12/22/2020 patient decided to be SAMPLE [employer]. Today around 10 AM patient from acute respiratory failure DISCHARGE MEDICATIONS: Please see below. ALLERGIES: Please see below. PHYSICAL EXAMINATION ON DISCHARGE: VITAL SIGNS: Please see below. GENERAL: HEENT: NECK: CARDIOVASCULAR EXAMINATION: RESPIRATORY EXAMINATION: ABDOMINAL EXAMINATION: EXTREMITIES: SKIN: NEUROLOGICAL EXAMINATION: PSYCHIATRIC EXAMINATION: LABORATORY DATA: Please see below. IMAGING: PROGNOSIS: ACTIVITY: [As tolerated]. DIET: DISCHARGE PLAN: DISPOSITION: 20 . DISCHARGE INSTRUCTIONS: 1. . ITEMS TO FOLLOWUP ON ON OUTPATIENT: 1. . DISCHARGE CONDITION: [Stable]. TIME SPENT ON DISCHARGE: minutes. Vital Signs/I&Os Vital Signs Date Time Temp Pulse Resp B/P (MAP) Pulse Ox O2 Delivery O2 Flow Rate FiO2 12/23/20 09:00 4.0 12/22/20 15:02 40 12/22/20 14:00 122 152/61 95 NIPPV (BIPAP/CPAP) 12/22/20 12:00 98.2 19 I&O- Last 24 Hours up to 6 AM 12/23/20 06:00 Intake Total 0 ml Output Total 275 ml Balance -275 ml Microbiology Microbiology 12/21/20 Blood Culture - Preliminary, Resulted No Growth after 48 hours. All Specime... 12/21/20 Blood Culture - Preliminary, Resulted No Growth after 48 hours. All Specime... Discharge Medications Scheduled Aspirin (Aspirin EC) 81 Mg Tablet.dr, 81 MG PO DAILY, (Reported) Atorvastatin Calcium (Atorvastatin Calcium) 20 Mg Tab, 20 MG PO QHS, (Reported) Azithromycin (Azithromycin) 250 Mg Tablet, 250 MG PO 3XW, (Reported) SAT/SAT/SAT Calcium/Magnesium/Zinc (Nqcmhsd-Gvblgkcah-Lkrj Tablet) 1 Each Tablet, 1 TAB PO DAILY, (Reported) Cholecalciferol (Vitamin D3) (Vitamin D3) 1,000 Unit Tablet, 1,000 UNITS PO DAILY, (Reported) Cyanocobalamin (Vitamin B-12) (Vitamin B-12) 1,000 Mcg Tab, 1,000 MCG PO DAILY, (Reported) Dexlansoprazole (Dexilant) 60 Mg Cap.bp, 60 MG PO DAILY, (Reported) Ferrous Sulfate (Ferrous Sulfate) 324 Mg Tablet.dr, 324 MG PO DAILY, (Reported) Lisinopril/Hydrochlorothiazide (Lisinopril-Hctz 10-12.5 mg Tab) 1 Each Tablet, 0.5 TAB PO QHS, (Reported) Mirtazapine (Mirtazapine) 45 Mg Tab.rapdis, 45 MG PO QHS, (Reported) Multivitamins (Thera M Plus Tablet) 1 Each Tablet, 1 TAB PO DAILY, (Reported) Wells-3 Fatty Acids/Fish Oil (Fish Oil 1,000 mg Capsule) 1 Each Capsule, 1,000 MG PO DAILY, (Reported) Paroxetine HCl (Paroxetine) 20 Mg Tablet, 20 MG PO QHS, (Reported) Prednisone (Prednisone) 5 Mg Tablet, 5 MG PO DAILY, (Reported) Salmeterol/Fluticasone (Advair 500-50 Diskus) 1 Each Blst.w.dev, 1 PUFF INH BID, (Reported) Tiotropium [place] (Spiriva Respimat) 4 Gm Mist.inhal, 2 PUFFS INH DAILY, (Reported) Scheduled PRN Albuterol Sulfate (Albuterol Sulfate) 2.5 Mg/0.5 Ml Vial.neb, 2.5 MG INH QID PRN for SOB/WHEEZING, (Reported) Alprazolam (Xanax) 0.25 Mg Tablet, 0.25 MG PO DAILY PRN for ANXIETY, (Reported) Guaifenesin (Mucinex) 1,200 Mg Tab.er.12h, 1,200 MG PO BID PRN for CONGESTION, (Reported) Ipratropium/Albuterol Sulfate (Combivent Respimat 20-100 Mcg) 4 Gm Mist.inhal, 2 PUFF INH Q6H PRN for SOB/WHEEZING, (Reported) Allergies Coded Allergies: nickel (Verified Allergy, Intermediate, rash, 08/18/20) SUGEY CASTANEDA DO Dec 23, 2020 18:30
== END 2020-12-23 10:19 | disposition expired | DRG 356 ==
LOC: M ED 11:52 → M ED INP 14:16 → ENRESERV 17:10 → M ICU 17:38 → M MS5PR 12-22 18:50
PROVIDERS: ADMIT Family Medicine; ATTEND Internal Medicine
PROC: 30233N1 Transfusion of Nonautologous Red Blood Cells into Peripheral Vein, Percutaneous Approach (ICD-10-PCS; 2020-12-19)
PROC: 02HV33Z Insertion of Infusion Device into Superior Vena Cava, Percutaneous Approach (ICD-10-PCS; 2020-12-19)
PROC: B414YZZ Fluoroscopy of Superior Mesenteric Artery using Other Contrast (ICD-10-PCS; 2020-12-19)
PROC: 04753DZ Dilation of Superior Mesenteric Artery with Intraluminal Device, Percutaneous Approach (ICD-10-PCS; principal; 2020-12-19 17:44)
DX: K57.91 Diverticulosis of intestine, part unspecified, without perforation or abscess with bleeding (principal); J96.02 Acute respiratory failure with hypercapnia; D62 Acute posthemorrhagic anemia; N17.9 Acute kidney failure, unspecified; E87.0 Hyperosmolality and hypernatremia; J96.11 Chronic respiratory failure with hypoxia; E87.2 Acidosis; J44.1 Chronic obstructive pulmonary disease with (acute) exacerbation; R57.1 Hypovolemic shock; R57.8 Other shock; E87.8 Other disorders of electrolyte and fluid balance, not elsewhere classified; Z51.5 Encounter for palliative care; Z79.899 Other long term (current) drug therapy; Z79.82 Long term (current) use of aspirin; Z88.8 Allergy status to other drugs, medicaments and biological substances; I10 Essential (primary) hypertension; Z96.643 Presence of artificial hip joint, bilateral; Z98.41 Cataract extraction status, right eye; Z98.42 Cataract extraction status, left eye; Z87.891 Personal history of nicotine dependence; I95.9 Hypotension, unspecified